=== PATIENT | female | born 1940 | race Native Hawaiian/Other Pacific Islander ===

== ENCOUNTER 2017-09-30 22:42 | Emergency (ER) | payer MEDICARE ==
[~2017-09-30] VITALS: Ht 167.6 cm; Wt 99.8 kg
[~2017-09-30 22:42] MED LIST: ALDACTONE25 MG PO; AMBIEN 5 MG TABL5 M1 PO; AMIODARONE HCL100 MG PO; ANTIVERT25 MG PO; COLESTIPOL HCL1 G1 PO; COMPAZINE10 MG PO; DUONEB 2.5-0.5 M3 ML INH; ELIQUIS5 MG PO; FEMARA2.5 MG PO; FOLIC ACID1 MG PO; GLUCOTROL5 MG PO; LANOXIN 0.120.125 M1 PO; LIPITOR10 MG PO; LISINOPRIL2.5 M1 PO; LOPERAMIDE 2 MG2 M1 PO; MIRALAX17 GM PO; OMEPRAZOLE 20 M20 M1 PO; POTASSIUM20 PO; TRAMADOL 50 MG50 MG PO; VITAMIN D1000 UNI1 PO; ZOLOFT50 MG PO
[2017-09-30] MEDS ORDERED: MILK OF MA2400 MG/10 PO (22:48)
[2017-09-30] MEDS ORDERED: TYLENOL325 MG PO (22:49)
[2017-09-30] MEDS ORDERED: PERCOCET 10-321 EACH PO (22:49)
[2017-09-30] MEDS ORDERED: FISH OIL 1,001000 M2 PO (22:49)
[2017-09-30] MEDS ORDERED: JUVEN PACKET1 EAC1 (22:50)
[2017-09-30] MEDS ORDERED: FLORASTOR250 MG PO (22:50)
[2017-09-30] MEDS ORDERED: VENTOLIN HFA 1818 GM INH (22:50)
[2017-09-30] MEDS ORDERED: CEFUROXIME500 MG (22:50)
[2017-09-30] MEDS ORDERED: LACTULOSE20 GM/30 M PO (22:51)
[2017-09-30] MEDS ORDERED: AMBIEN 5 MG TABL5 M1 (22:51)
[2017-09-30 23:01] LABS: ABSOLUTE EOSINOPHILS 0.4 thou/uL (0.0-0.7); ABSOLUTE LYMPHOCYTES 1.5 thou/uL (0.8-5.3); ABSOLUTE MONOCYTES 0.4 thou/uL (0.0-1.2); ABSOLUTE NEUTROPHILS 2.7 thou/uL (1.6-8.1); BASOPHILS 0.8 %; EOSINOPHILS 7.2 %; HEMATOCRIT 31.2 % (37.0-47.0); HEMOGLOBIN 10.1 gm/dL (12.0-15.0); LYMPHOCYTES 30.5 %; MCH 26.9 pg (26.0-34.0); MCHC 32.3 g/dL (28.0-37.0); MCV 83.3 fL (80.0-100.0); MONOCYTES 7.9 %; MPV 9.1 fl. (7.2-11.1); NUCLEATED RBCS 0 /100WBC; PLATELET COUNT* 80 thou/uL (150-400); POLYS 53.6 %; RBC 3.74 mil/uL (4.20-5.00); RDW-CV 22.2 % (10.5-14.5)
[2017-09-30 23:09] LABS: CALCIUM 8.3 mg/dL (8.5-10.1); CREATININE 1.6 mg/dL (0.6-1.3); INR 1.8; POTASSIUM 5.4 mmol/L (3.5-5.1); PROTIME 17.1 Seconds (9.20-11.50)
[2017-09-30 23:18] LABS: ALBUMIN 2.2 g/dL (3.4-5.0); ANISOCYTOSIS 2+; HYPOCHROMASIA 1+; MICROCYTES 1+; OVALOCYTES 1+; PLATELET ESTIMATE DECREASED; POIKILOCYTOSIS 1+; TARGET CELLS 1+; TOTAL PROTEIN 6.8 g/dL (6.4-8.2)
[2017-10-01 00:41] LABS: URINE BILIRUBIN NEGATIVE (Negative); URINE BLOOD 3+ (Negative); URINE CLARITY CLEAR; URINE COLOR YELLOW; URINE GLUCOSE-RANDOM NEGATIVE (Negative); URINE KETONES NEGATIVE (Negative); URINE LEUKOCYTES-REFLEX NEGATIVE (Negative); URINE NITRITE-REFLEX NEGATIVE (Negative); URINE PROTEIN NEGATIVE (Negative); URINE SPECIFIC GRAVITY 1.025 (1.005-1.030); URINE UROBILINOGEN 0.2 E.U./dl (0.2-1.0)
[2017-10-01 00:48] LABS: BACTERIA-REFLEX None Seen /HPF (None Seen); CASTS None Seen /LPF (None Seen); CRYSTALS None Seen /LPF (None Seen); SQUAMOUS NONE SEEN /LPF (0-3); URINE WBC-REFLEX 0-5 Rare /HPF (0-5)
[2017-10-01 02:48] LABS: CALCIUM 7.9 mg/dL (8.5-10.1); CREATININE 1.4 mg/dL (0.6-1.3); POTASSIUM 4.7 mmol/L (3.5-5.1)
[2017-10-01 03:45] VITALS: BP 133/78
== END 2017-10-01 03:46 | disposition home or self-care (01) ==
LOC: M.ERS 22:42
PROVIDERS: Emergency Medicine
DX: E87.5 Hyperkalemia (principal); K94.01 Colostomy hemorrhage; E11.22 Type 2 diabetes mellitus with diabetic chronic kidney disease; I13.0 Hypertensive heart and chronic kidney disease with heart failure and stage 1 through stage 4 chronic kidney disease, or unspecified chronic kidney disease; N18.3 Chronic kidney disease, stage 3 (moderate); I50.9 Heart failure, unspecified; I48.91 Unspecified atrial fibrillation; I25.10 Atherosclerotic heart disease of native coronary artery without angina pectoris; M19.90 Unspecified osteoarthritis, unspecified site; F32.9 Major depressive disorder, single episode, unspecified; J44.9 Chronic obstructive pulmonary disease, unspecified; G89.29 Other chronic pain; M54.9 Dorsalgia, unspecified; M06.9 Rheumatoid arthritis, unspecified; E78.5 Hyperlipidemia, unspecified; G47.33 Obstructive sleep apnea (adult) (pediatric); E66.9 Obesity, unspecified; Z68.35 Body mass index [BMI] 35.0-35.9, adult

== ENCOUNTER 2017-10-24 12:29 | Inpatient (IN) | payer MEDICARE ==
[~2017-10-24] VITALS: Ht 162.6 cm; Wt 76.2 kg
[~2017-10-24 12:29] MED LIST changes: +AMBIEN 5 MG TABL5 M1; +CEFUROXIME500 MG; +FISH OIL 1,001000 M2 PO; +FLORASTOR250 MG PO; +JUVEN PACKET1 EAC1; +LACTULOSE20 GM/30 M PO; +MILK OF MA2400 MG/10 PO; +PERCOCET 10-321 EACH PO; +TYLENOL325 MG PO; +VENTOLIN HFA 1818 GM INH
[2017-10-24] MEDS ORDERED: PACERONE200 MG PO (12:32)
[2017-10-24 12:33] VITALS: BP 105/60
[2017-10-24] MEDS ORDERED: FEMARA2.5 MG PO (12:34)
[2017-10-24] MEDS ORDERED: BENEPROTEIN1 EACH PO (12:37)
[2017-10-24] MEDS ORDERED: LIDOCAINE PAIN1 EACH TOP (12:38)
[2017-10-24] MEDS ORDERED: LASIX 40 MG TAB40 M2 PO (12:38)
[2017-10-24] MEDS ORDERED: COLESTID1 GM PO (12:39)
[2017-10-24] MEDS ORDERED: ENSURE PLUS237 ML PO (12:40)
[2017-10-24 13:20] LABS: HCO3 16.1 mmol/L (22.0-26.0); PO2 80.2 mmHg (75.0-100.0); pH 7.363 (7.340-7.450)
[2017-10-24 14:25] LABS: ABSOLUTE EOSINOPHILS 0.1 thou/uL (0.0-0.7); ABSOLUTE LYMPHOCYTES 1.3 thou/uL (0.8-5.3); ABSOLUTE MONOCYTES 0.4 thou/uL (0.0-1.2); ABSOLUTE NEUTROPHILS 3.3 thou/uL (1.6-8.1); BASOPHILS 0.6 %; EOSINOPHILS 2.3 %; HEMATOCRIT 37.4 % (37.0-47.0); HEMOGLOBIN 11.5 gm/dL (12.0-15.0); LYMPHOCYTES 24.7 %; MCH 25.5 pg (26.0-34.0); MCHC 30.7 g/dL (28.0-37.0); MCV 83.1 fL (80.0-100.0); MONOCYTES 8.2 %; MPV 9.6 fl. (7.2-11.1); NUCLEATED RBCS 0 /100WBC; PLATELET COUNT* 86 thou/uL (150-400); POLYS 64.2 %; RDW-CV 20.9 % (10.5-14.5); WBC 5.2 thou/uL (4.0-11.0)
[2017-10-24 14:35] LABS: CALCIUM 9.5 mg/dL (8.5-10.1); CREATININE 2.7 mg/dL (0.6-1.3)
[2017-10-24 14:47] LABS: ALBUMIN 2.5 g/dL (3.4-5.0); ANISOCYTOSIS 1+; MACROCYTES 1+; MAGNESIUM 2.1 mg/dL (1.8-2.4); PLATELET ESTIMATE DECREASED; POTASSIUM 5.6 mmol/L (3.5-5.1); TOTAL BILIRUBIN 1.6 mg/dL (<0.1-1.0); TOTAL PROTEIN 8.7 g/dL (6.4-8.2); TROPONIN-I LEVEL 0.44 ng/mL (<0.06)
[2017-10-24 14:49] LABS: POIKILOCYTOSIS 1+
[2017-10-24 15:04] LABS: URINE BILIRUBIN NEGATIVE (Negative); URINE BLOOD 3+ (Negative); URINE COLOR YELLOW; URINE GLUCOSE-RANDOM NEGATIVE (Negative); URINE KETONES NEGATIVE (Negative); URINE NITRITE-REFLEX NEGATIVE (Negative); URINE PROTEIN NEGATIVE (Negative); URINE SPECIFIC GRAVITY 1.025 (1.005-1.030); URINE UROBILINOGEN 0.2 E.U./dl (0.2-1.0)
[2017-10-24 15:05] LABS: URINE CLARITY HAZY; URINE LEUKOCYTES-REFLEX 3+ (Negative)
[2017-10-24 15:08] LABS: BACTERIA-REFLEX 1-9 Few /HPF (None Seen); CASTS None Seen /LPF (None Seen); CRYSTALS None Seen /LPF (None Seen); SQUAMOUS 4-10 Moderate /LPF (0-3); URINE RBC 3-10 Few /HPF (0-2); URINE WBC-REFLEX 6-15 Few /HPF (0-5)
--- NOTE | 2017-10-24 15:26 | NUR ---
UPON ASSESSMENT PT WAS FOUND TO HAVE HAD A MASTECTOMY OF THE LEFT BREAST, PT HAS 20G IV PLACED BY EMS IN [facility]. WILL OBTAIN ACCESS ON RT SIDE AND REMOVE ACCESS ON LEFT & PLACE LIMB ALERT BAND. PT HAS COLOSTOMY BAG PRESENT ON ADMISSION THAT IS LEAKING AT TIME OF ADMISSION, WILL OBTAIN NEW BAG DEVICE AND REPLACE MARK.
[2017-10-24 18:02] VITALS: BP 117/60
[2017-10-24 18:10] VITALS: BP 145/74
[2017-10-24 18:30] VITALS: BP 145/74
[2017-10-24 18:40] LABS: APTT 32.9 Seconds (25.0-31.3); INR 1.5; PROTIME 15.5 Seconds (9.20-11.50)
--- NOTE | 2017-10-24 19:00 | NUR ---
pt to room from ER, appears o x 1-3 forgetful, appears weak, family at bedside, hx a-fib, currently SR. family at beside. Called DR Caputo ID, request consult. Called pharmacy request dosing, for IV abx per dr Lawson's request
[2017-10-24] MEDS ORDERED: PERCOCET 10-321 EAC1 PO (19:17)
[2017-10-24 20:20] VITALS: BP 91/43
[2017-10-25] VITALS (8 sets, daily range): BP systolic 95–136; BP diastolic 51–89
[2017-10-25 04:57] LABS: HEMATOCRIT 34.4 % (37.0-47.0); HEMOGLOBIN 10.7 gm/dL (12.0-15.0); MCH 25.4 pg (26.0-34.0); MCHC 31.1 g/dL (28.0-37.0); MCV 81.9 fL (80.0-100.0); MPV 9.7 fl. (7.2-11.1); RBC 4.2 mil/uL (4.20-5.00); RDW-CV 20.8 % (10.5-14.5); WBC 4.6 thou/uL (4.0-11.0)
--- NOTE | 2017-10-25 05:06 | NUR ---
ASSUMED PT CARE AT 1930. ASSESSMENT COMPLETED CHARTED. PT IS CONFUSED YET PLEASENT, ON BEDREST, INCONTINENT AT TIMES, COLOSTOMY IN PLACE WITH NO LEAKING NOTED. PT HAS CALLED OUT SEVERAL TIMES DURING THE NIGHT AND TRIED TO CRAWL OUT OF BED A SHORT TIME AGO. NO C/O PAIN, NOT ABLE TO MAKE MOST NEEDS KNOWN. WILL CONTINUE TO MONITOR.
[2017-10-25 06:08] LABS: ALBUMIN 2.3 g/dL (3.4-5.0); CALCIUM 8.4 mg/dL (8.5-10.1); CREATININE 2.5 mg/dL (0.6-1.3); MAGNESIUM 1.7 mg/dL (1.8-2.4); TOTAL BILIRUBIN 1.3 mg/dL (<0.1-1.0); TOTAL PROTEIN 7.2 g/dL (6.4-8.2)
[2017-10-25 06:23] LABS: POTASSIUM 4.6 mmol/L (3.5-5.1)
--- NOTE | 2017-10-25 08:00 | NUR ---
PT RESTING IN BED, SLEEP INTERRUPTED , APPEARS O X 2-3 , ASKED IF SHE KNEW WHERE SHE WAS, SHE STATED "[facility]", ADVISED SHE WAS [facility], SHE COULD THEN RECALL THAT SHE WS AT [facility], COULD CORRECTLT STATE YEAR OF 2017, BUT STATED SHE BELIEVED IT WAS AUGUST. DOES NOT APPERT TO BE IN ANY OBVIOS PAIN OR DISCOMFORT, BREATHING EVEN AND UNLABORED, O2 SAST 96% ON RA, NSR ON MONITOR WITH PROLOMGED DE IMTERVAL. . PT DENIES CHEST PAIN, SOB, PAIN OR DISCOMFORT, IS NPO, INCONTIENT OF URINE, PRESENTS WITH GENERALIZED WEAKENESS, COLOSTOPY, STOMA , APPEAR SPINK, COLOSTOMG BAG INTACT
--- NOTE | 2017-10-25 18:33 | NUR ---
PT RTESTING IN BED , HAS BEEN O X 3-4 TODAY, FORGETFUL AT [facility]. SEEN BY CARDIOLOGY AND GI, GOOD APPETITE , HAD ABDOMINAL US, IS CUURRENTLY NPO FOR CT SCAN OF ABDOMEN, PT HAS DENIES CHEST PAINM SOB, HAS C/O CHRONIC BACK PAIN, APPEARS WEAK, FED BY STAFF, TURNE Q 2 HOURS, ABLE TO USE CALL LIGHT, HAS BEEN CONTINENT, USED BEDPAN, ASSIT WITH TURNS. PT COMPLTED ORAL CONTRAST AT 1830
[2017-10-26 00:21] VITALS: BP 127/62
[2017-10-26 05:00] VITALS: BP 130/64
--- NOTE | 2017-10-26 05:18 | NUR ---
ASSUMED PT CARE AT 1930. ASSESSMENT COMPLETED CHARTED. PT WENT TO CT SCAN AT BEGINNING OF SHIFT AND WAS BROUGHT BACK UP SHORTLY AFTER AND WAS ABLE TO EAT. NO C/O PAIN, EMPTYING COLOSTOMY BAG SEVERAL TIMES AT NIGHT DUE TO LIQUID STOOLS. BEDREST AND USES BEDPAN TO URINATE. ABLE TO MAKE SOME NEEDS KNOWN. WILL CONTINUE TO MONITOR.
[2017-10-26 07:27] LABS: HEMOGLOBIN 9.9 gm/dL (12.0-15.0); MCH 25.4 pg (26.0-34.0); MCHC 31.1 g/dL (28.0-37.0); MCV 81.6 fL (80.0-100.0); MPV 8.7 fl. (7.2-11.1); NUCLEATED RBCS 0 /100WBC; PLATELET COUNT* 68 thou/uL (150-400); RBC 3.92 mil/uL (4.20-5.00)
[2017-10-26 07:40] LABS: ALBUMIN 2.2 g/dL (3.4-5.0); CALCIUM 7.7 mg/dL (8.5-10.1); CREATININE 1.8 mg/dL (0.6-1.3); POTASSIUM 3.6 mmol/L (3.5-5.1); TOTAL BILIRUBIN 1.2 mg/dL (<0.1-1.0)
[2017-10-26 07:51] LABS: ABSOLUTE EOSINOPHILS 0.3 thou/uL (0.0-0.7); ABSOLUTE LYMPHOCYTES 0.6 thou/uL (0.8-5.3); ABSOLUTE MONOCYTES 0.1 thou/uL (0.0-1.2); ANISOCYTOSIS 2+; PLATELET ESTIMATE ADEQUATE
--- NOTE | 2017-10-26 08:00 | NUR ---
PT RESTING IN BED , APPEARS ALERT O X 3-4 FOEGETFUL, DENIES CHEST PAIN, SOB, PAIN OR DISCOMFORT, HAS COLOSTOMY LIQUID STOOL. NSR ON MONITOR, HAS HX OF A-FIB, APPEARS DEEHABILITATED/WEAK. NEEDS ASSIT WITH TURNS, ABLE TO FEED SELF WITH SET UP,
[2017-10-26 09:05] VITALS: BP 141/77
--- NOTE | 2017-10-26 10:27 | EKG ---
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: Dimple TENORIO : 1940 Requested By: Thania Rivera Order Number: [id number] MD: Julius De Jesus Measurements Intervals [place] Rate: 75 P: -74 AK: 339 QRS: -46 QRSD: 145 T: 65 QT: 429 QTc: 480 Interpretive Statements Sinus or ectopic atrial rhythm Prolonged AK interval LVH with IVCD, LAD and secondary repol abnrm Compared to ECG 04/17/2016 22:57:21 Left ventricular hypertrophy now present Early repolarization now present Ventricular premature complex(es) no longer present Electronically Signed On 10-26-2017 10:27:32 CDT by Julius De Jesus [email or web address] <ELECTRONICALLY SIGNED> By: Julius De Jesus MD, FACC 10/26/17 1027 1251 1251 Julius De Jesus MD, [facility] /EPI
--- NOTE | 2017-10-26 10:56 | CON ---
[address] [address] CONSULTATION Name: ROSINA PEDERSON Room: [address] IN .R.#: [id number] Admission: 10/24/17 Attend Phys: Jesús Courtney, Discharge: Date of : 42 Report #: [id number] THIS REPORT FOR: //name// CC: Angelica Courtney DATE OF SERVICE: 10/25/2017 ATTENDING PHYSICIAN: Dr. Rivera. REASON FOR CONSULTATION: Possible sepsis. HISTORY OF PRESENT ILLNESS: This is a 77-year-old woman with multiple medical problems, admitted through the Emergency Room with altered mental status. The patient is started on Zosyn and vancomycin. The patient now trying to get out of bed, telling me that she needs to go to the bathroom. The patient had some recollection of past medical history, but she is deemed to be not a good historian. Consequently, most, if not all, her medical information is gathered from the review of records. Apparently, the patient is brought to the ER with weakness, altered mental status of 4-5 days' duration. PAST MEDICAL HISTORY: 1. History of left mastectomy, suspect for breast cancer. 2. Status post colostomy. 3. Hypertension. 4. Diabetes mellitus. 5. Chronic atrial fibrillation. 6. Chronic kidney disease. 7. Obstructive sleep apnea. 8. Previous episode of diverticulitis requiring ileostomy placement. DRUG ALLERGIES: None listed. MEDICATIONS: The patient is currently on treatment with vancomycin 500 mg 2 times daily, Zosyn 3.375 grams IV every 12 hours, Saccharomyces boulardii with breakfast, enoxaparin, atorvastatin, cholecalciferol, folic acid, lidocaine patch, pantoprazole, lactulose, sertraline, fish oil, amiodarone, magnesium supplementation, p.r.n. acetaminophen, albuterol inhalation treatments. SOCIAL HISTORY: See H and P, old records. FAMILY HISTORY: See H and P, [place] [address] CONSULTATION Name: ROSINA PEDERSON Room: [address] IN [facility].#: [id number] Admission: 10/24/17 Attend Phys: Jesús Courtney, Discharge: Date of : 42 Report #: [id number] REVIEW OF SYSTEMS: As above. PHYSICAL EXAMINATION: GENERAL: Elderly obese woman, afebrile since admission. VITAL SIGNS: Temperature 97.9, pulse 61, respirations 17, BP as low as 91/43 to 107/51. Intake and output not available. O2 saturation 95% on room air. HEENMT: Head normocephalic, atraumatic. Pupils reactive, arcus cornealis. Mouth edentulous. NECK: Supple. LUNGS: Clear to auscultation. HEART: S1, S2. No gallops. ABDOMEN: Revealed ostomy in place with stool in the ostomy bag, soft, not tender. PELVIC AND RECTAL: Deferred. EXTREMITIES: No clubbing, cyanosis. BREASTS: Reveals status post left mastectomy. LABORATORY DATA: Sodium 133, potassium 5.6, CO2 of 23, BUN 44, creatinine 2.7. Renal function abnormal since 04/09/2016. Total bilirubin elevated at 1.6 mg/dL, phosphorus 5.4 mg/dL, albumin 2.5 g/dL, total protein 8.7 g/dL. Troponin mildly elevated, lactic acid 2.6. Protime 15.5 seconds, INR 1.5. WBC on admission 5200, hemoglobin 11.5 g/dL and platelets decreased at 86,000. Note is made the patient was thrombocytopenic since 2011. The urinalysis revealed 3+ blood, 3+ leukocyte esterase, some microscopic pyuria, hematuria and bacteriuria. ABGs revealed pH 7.36, pCO2 low at 29, pO2 of 80.2, bicarbonate 16.1, lactic acid not performed during blood gases; this set of blood gases is on room air. MICROBIOLOGY DATA: All pending at the time of this dictation. RADIOLOGY EVALUATION: Chest x-rays reveal cardiomegaly, vascularity within normal limits. No acute cardiopulmonary process. ASSESSMENT: 1. Altered mental status. 2. Possible urinary tract infection. 3. Elevation of serum ammonia, question underlying chronic liver disease. 4. Chronic kidney disease. 5. Anemia, thrombocytopenia. 6. Left mastectomy. 7. History of colonic diverticula, question diverticulitis and question segmental colon resection and ileostomy versus colostomy. SUGGESTIONS: While awaiting culture result continue combination regimen with vancomycin and Zosyn. Monitor laboratory parameters[place] [address] CONSULTATION Name: ROSINA PEDERSON Room: [address] IN [facility].#: [id number] Admission: 10/24/17 Attend Phys: Jesús Courtney, Discharge: Date of : 42 Report #: [id number] Rivera, thank you for requesting my suggestions in the care of your patient. <ELECTRONICALLY SIGNED> By: Kash Caputo MD 10/26/17 1056 0500 1730Guillermherman Caputo MD /nt
--- NOTE | 2017-10-26 11:51 | CON ---
[address] [address] CONSULTATION Name: ROSINA PEDERSON Room: [address] IN .R.#: [id number] Admission: 10/24/17 Attend Phys: Jesús Courtney, Discharge: Date of : 42 Report #: [id number] THIS REPORT FOR: //name// CC: Angelica Courtney DATE OF SERVICE: 10/25/2017 REQUESTING PHYSICIAN: Jesús Courtney MD REASON FOR CONSULTATION: Acute kidney injury. HISTORY OF PRESENT ILLNESS: The patient is a 77-year-old female with medical history significant for deconditioning. She is in detention, trying to get some rehab. She is basically bedridden according to the family. She has chronic kidney disease stage 3, creatinine around 1.6 as a baseline, she was transferred here from detention for altered mental status. Creatinine was 2.7 on admission, potassium was 5.6. She had evidence of infection. The urine looked infected, positive for bacteria, positive for red blood cells and white blood cells. The cultures pending. She was started on IV antibiotics and IV fluids. Her mental status is better now. PAST MEDICAL HISTORY: Significant for: 1. Chronic kidney disease stage 3. 2. History of recurrent urinary tract infections. 3. History of deconditioning. 4. History of breast cancer, status post radiation done by Dr. Live, also has a surgery done by ____. FAMILY HISTORY: Noncontributory. SOCIAL HISTORY: long-term resident. REVIEW OF SYSTEMS: Unreliable. PHYSICAL EXAMINATION: GENERAL: She is awake. VITAL SIGNS: Blood pressure 120/66, it was as low as 91/43, heart rate 64, afebrile. HEENT: Pupils are round. NECK: Supple. LUNGS: Clear. CARDIOVASCULAR: Regular rate. ABDOMEN: Soft. LOWER EXTREMITIES: [place] [id number] CONSULTATION Name: ROSINA PEDERSON Room: [address]#: [id number] Admission: 10/24/17 Attend Phys: Jesús Courtney, Discharge: Date of : 41 Report #: [id number] LABORATORY DATA: Report from today, serum sodium 136, potassium 4.6, chloride 106, carbon dioxide 20, BUN 47 and creatinine 2.5. ASSESSMENT: A 77-year-old female admitted with acute kidney injury, altered mental status, most likely due to urinary tract infection. She was started on IV antibiotics and fluids. Her kidney function is improving. Urine output is improving, potassium is better and mental status is better. I will continue with current treatment and follow her labs. <ELECTRONICALLY SIGNED> By: Willie Roberts MD 10/26/17 1151 1200 1405Alexandr Ayo Roberts MD /BREE
[2017-10-26 16:00] VITALS: BP 146/66
[2017-10-26 17:14] VITALS: BP 140/72
[2017-10-26 20:00] VITALS: BP 141/66
[2017-10-27] VITALS: BP 134/47
[2017-10-27 04:39] VITALS: BP 125/64
[2017-10-27 05:03] LABS: CALCIUM 7.6 mg/dL (8.5-10.1); CREATININE 1.4 mg/dL (0.6-1.3); POTASSIUM 4.3 mmol/L (3.5-5.1)
--- NOTE | 2017-10-27 05:07 | NUR ---
ASSUMED PT CARE AT 1930. ASSESSMENT COMPLETED CHARTED. PT RESTING IN BED AT THIS TIME, SAT UP ON THE EDGE OF THE BED LAST NIGHT STATING SHE WANTED TO GET UP TO USE THE RESTROOM AND INSTEAD WE ASKED IF SHE WOULD USE THE BEDPAN INSTEAD FOR TONIGHT FOR SAFETY AND HAS BEEN URINATING W/O ACCIDENTS. ABLE TO MAKE NEEDS KNOWN. WILL CONTINUE TO MONITOR.
[2017-10-27 08:23] VITALS: BP 141/74
--- NOTE | 2017-10-27 11:10 | CON ---
[address] [address] CONSULTATION Name: ROSINA PEDERSON Room: [address] IN M.R.#: [id number] Admission: 10/24/17 Attend Phys: Jesús Courtney, Discharge: Date of : 42 Report #: [id number] THIS REPORT FOR: //name// CC: Angelica Courtney TYPE OF REPORT: Cardiology consultation. INDICATION: Elevated troponin. HISTORY OF PRESENT ILLNESS: The patient is a very pleasant 77-year-old Somalian woman who was admitted to the hospital with altered mental status and acute renal failure. She is originally from [place]. She has a history of paroxysmal atrial fibrillation. More recently, she has a history of cerebral bleed. She is not anticoagulated for her atrial fibrillation, presumably because of intracerebral bleed. She is alert and somewhat conversive but unable to share adequate history. When asked specifically, she denies any chest pain, tightness or pressure. She does not appear to be short of breath. There is no documented history of coronary artery disease. EKG shows sinus rhythm with nonspecific ST-T wave abnormalities without ST elevation. Troponins are minimally elevated and do not appear to be trending in an upward or downward fashion. ALLERGIES: None documented. HOME MEDICATIONS: Tylenol p.r.n., albuterol 2 puffs as directed, amiodarone 200 mg daily, atorvastatin 10 mg at bedtime, vitamin D 1000 units daily, Colestid 1 gram 2 tablets b.i.d., fish oil 1000 mg daily, folate 1 mg daily, Ensure +1 can 3 times daily, lactulose 30 mL daily, Femara 2.5 mg daily, Lidoderm patch topically daily, lisinopril 2.5 mg daily, milk of magnesia 30 mL daily, omeprazole 20 mg daily, Percocet 10/325 q. 6 hours p.r.n., Florastor 250 mg 2 tablets b.i.d., Zoloft 50 mg daily and Beneprotein 1 capsule b.i.d. REVIEW OF SYSTEMS: Not obtainable. SOCIAL HISTORY: Nonsmoker and nondrinker. FAMILY HISTORY: Noncontributory. PHYSICAL EXAMINATION: VITAL SIGNS: Blood pressure 120/66 and pulse 66 and regular. GENERAL: This is a pleasant elderly female who does not appear to be in distress. HEENT: Head is normocephalic and atraumatic. Extraocular muscles intact. Mucous membranes are moist. NECK: Shows no jugular venous distention. There are no carotid bruits. CHEST: [place] [address] CONSULTATION Name: ROSINA PEDERSON Room: [address] IN M.R.#: [id number] Admission: 10/24/17 Attend Phys: Jesús Courtney, Discharge: Date of : 41 Report #: [id number] CARDIOVASCULAR: Reveals a regular rhythm. I do not appreciate gallop or murmur. ABDOMEN: Reveals normal bowel sounds. The abdomen is soft and nontender. EXTREMITIES: Shows no edema. Peripheral pulses palpable. SKIN: Warm and dry. RADIOLOGICAL DATA: A 12-lead EKG shows sinus rhythm with first degree AV block and nonspecific T-wave flattening and subtle ST-segment depression. LABORATORY DATA: Labs are reviewed and remarkable for BUN 47 and creatinine 2.5, both trending downward. Troponin 0.44, 0.48, 0.45 and 0.52 sequentially. NT-pro-BNP 285. IMPRESSION AND RECOMMENDATIONS: 1. Elevated troponin. Etiology is not clear at this point in time. I would like an echocardiogram to evaluate for possible underlying effusion or wall motion abnormality. She is not having any chest pain to suggest acute coronary syndrome, so we will not treat as such. Consider noninvasive stress testing in the near future. 2. Acute renal failure, improving with hydration. 3. Urinary tract infection. The patient is currently on IV antibiotics. 4. Paroxysmal atrial fibrillation, presently maintaining sinus rhythm on amiodarone. She is not anticoagulated due to history of intracranial bleed. Continue treatment as outlined above. 5. Hypertension. Blood pressure adequately controlled on current regimen. 6. Diabetes per primary physician. 7. Obstructive sleep apnea. 8. History of congestive heart failure, presently stable on low dose diuretic. Plan echocardiogram. <ELECTRONICALLY SIGNED> By: Rai Gregory MD, FACC 10/27/17 1110 1110 [id number] Hospital[facility] Gregory MD, FACC /nt
[2017-10-27 11:52] VITALS: BP 116/83
[2017-10-27 12:20] VITALS: BP 106/65
--- NOTE | 2017-10-27 13:16 | 2DMMODE ---
[place] [address] 2 D/M-MODE ECHOCARDIOGRAM Name: ROSINA PEDERSON Room: [address] IN [facility]#: [id number] Admission: 10/24/17 Attend Phys: Jesús Beltran Discharge: Date of : 42 Date of Service: 10/27/17 1316 Report #: [id number] THIS REPORT FOR: //name// APPROVED REPORT Study performed: 10/27/2017 11:42:38 EXAM: Comprehensive 2D, Doppler, and color-flow Echocardiogram Patient Location: In-Patient Room #: [facility] [place] Status: routine BSA: 1.96 HR: 78 bpm BP: 141/74 mmHg Rhythm: NSR Other Information Study Quality: Good Indications Congestive Heart Failure 2D Dimensions LVEF(%): 33.52 (>50%) IVSd: 17.45 (7-11mm) LVOT Diam: 22.48 (18-24mm) LVDd: 57.08 mm PWd: 13.87 (7-11mm) Ascending Ao: 43.64 (22-36mm) LVDs: 47.85 (25-40mm) Aortic Root: 38.91 mm Barragan's LVEF: 33.52 % Volumes Left Atrial Volume (Systole) LA ESV Index: 62.60 mL/m2 Aortic Valve AoV Peak Linus.: 1.05 m/s AO Peak Gr.: 4.42 mmHg LVOT Max P.23 mmHg AO Mean Gr.: 2.65 mmHg LVOT Mean P.78 mmHg LVOT Max V: 0.56 m/s AO V2 VTI: 18.11 cm LVOT Mean V: 0.43 m/s BECCA (VTI): 2.28 cm2 LVOT V1 VTI: 10.42 cm AI Coryell: 1.51 m/s2 AI PHT: 712.38 [place] [address] 2 D/M-MODE ECHOCARDIOGRAM Name: ROSINA PEDERSON Room: [address] IN [facility]#: [id number] Admission: 10/24/17 Attend Phys: Jesús Beltran Discharge: Date of : 42 Date of Service: 10/27/17 1316 Report #: [id number] Mitral Valve E/A Ratio: 1.48 MV Decel. Time: 155.40 ms MV E Max Linus.: 0.85 m/s MV PHT: 45.06 ms MVA (PHT): 4.88 cm2 TDI E/Lateral E': 5.31 Lateral E' Linus.: 0.16 m/s Pulmonary Valve PV Peak Linus.: 0.75 m/s PV Peak Gr.: 2.22 mmHg Tricuspid Valve RAP Estimate: 5.00 mmHg TR Peak Gr.: 21.52 mmHg RVSP: 26.52 mmHg PA Pressure: 26.52 mmHg Left Ventricle Left ventricle is mildly dilated. There is inferobasilar akinesis with hypokinesis of remaining segments Borderline concentric left ventricular hypertrophy. Left ventricular systolic function is moderate to severely decreased. LVEF is 35%. This study is not technically sufficient to allow evaluation of the LV diastolic function. Right Ventricle The right ventricle is normal size. The right ventricular systolic function is normal. Atria Left atrium is moderately dilated. The right atrium size is normal. Aortic Valve Mild aortic valve sclerosis. Mild aortic regurgitation. There is no aortic valvular stenosis. Mitral Valve The mitral valve is normal in structure. Moderate mitral regurgitation. No evidence of mitral valve stenosis. Tricuspid Valve The tricuspid valve is normal in structure. [place] [address] 2 D/M-MODE ECHOCARDIOGRAM Name: ROSINA PEDERSON Room: [address]#: [id number] Admission: 10/24/17 Attend Phys: Jesús Beltran Discharge: Date of : 42 Date of Service: 10/27/17 1316 Report #: [id number] Pulmonic Valve The pulmonary valve is normal in structure. Mild pulmonic regurgitation. Great Vessels The aortic root is normal in size. IVC is normal in size and collapses with >50% inspiration Pericardium There is no pericardial effusion. <Conclusion> Left ventricle is mildly dilated. Borderline concentric left ventricular hypertrophy. Left ventricular systolic function is moderate to severely decreased. LVEF is 35%. The right ventricle is normal size. Left atrium is moderately dilated. The right atrium size is normal. Mild aortic valve sclerosis. Mild aortic regurgitation. There is no aortic valvular stenosis. The mitral valve is normal in structure. Moderate mitral regurgitation. No evidence of mitral valve stenosis. The tricuspid valve is normal in structure. IVC is normal in size and collapses with >50% inspiration There is no pericardial effusion. There is inferobasilar akinesis with hypokinesis of remaining segments <ELECTRONICALLY SIGNED> By: Julius De Jesus MD, FACC 10/27/171315 15 15 Julius De Jesus MD, FACC /INF
--- NOTE | 2017-10-27 16:51 | NUR ---
SW met with pt to complete initial assessment, introduce self, and SW role. Pt was alert but confused and was not able to answer questions. Pt record indicates pt lives at home with and has a RW and history of HH services. SW to call family to complete assessment and SW to continue to follow to assist with safe dc planning.
--- NOTE | 2017-10-27 17:59 | NUR ---
PT VSS THIS SHIFT. PT TOLERATED GETTING UP TO CHAIR THIS SHIFT. PT PLACED ON 2L PER NC PER DR JUNIOR REQUEST SINCE THIS IS THE PT BASELINE. DR JUNIOR STATED HE WANTS THE O2 ON REGARDLESS OF O2 SATURATION. PT FAMILY IN TO VISIT WITH PATIENT. PT VERBALIZED NO PAIN THIS SHIFT. PT AOX1-2 AT THIS TIME. PT HAS SLIGHT DROOP OF R SIDE OF MOUTH FROM PREVIOUS STROKE AND IS PT BASELINE.
[2017-10-27 20:00] VITALS: BP 116/50; BP 130/53
[2017-10-28] VITALS (14 sets, daily range): BP systolic 119–175; BP diastolic 53–83
--- NOTE | 2017-10-28 04:13 | NUR ---
ASSUMED PT CARE AT 1930. ASSESSMENT COMPLETED CHARTED. ABLE TO MAKE NEEDS KNOWN, PT RESTING IN BED AT THIS TIME, IV SL, BEDREST WITH Q2 TURNS. COLOSTOMY BAG REPLACED THIS SHIFT AND EMPTIED A COUPLE TIMES THIS SHIFT DUE TO LACTALOSE. NPO FOR POSS STENT PLACEMENT TODAY. WILL CONTINUE TO MONITOR.
[2017-10-28 05:23] LABS: ALBUMIN 2.1 g/dL (3.4-5.0); CALCIUM 7.9 mg/dL (8.5-10.1); CREATININE 1.5 mg/dL (0.6-1.3); POTASSIUM 4.4 mmol/L (3.5-5.1); TOTAL PROTEIN 6.5 g/dL (6.4-8.2)
[2017-10-28 09:13] LABS: HEPATITIS B SURFACE AG Negative (Negative)
--- NOTE | 2017-10-28 11:48 | NUR ---
ASSUMED CARE OF PATIENT THIS AM AT 0730. PATIENT IS ALERT ORIENTED X 4 THIS AM. SHE DENIES PAIN AT THIS TIME. PATIENT KEPT NPO FOR PLANNED PROCEDURES. PROCEDURE PREP ORDERS ARE UNCLEAR. CARDIOLOGY NURSE PAGED FOR CLARIFICATION OF ORDERS. NNO AT THIS TIME. CONTACTED THE OFFICE CHAIR ASSEMBLER AND VERBAL ORDERS RECIEVED. PATIENT STARTED ON NS AT 75/HR. PATIENT ASSISTED UP TO THE CHAIR. TELE SHOWS SINUS LAURIE WITH A 1DAVB. WILL CONTINUE TO MONITOR.
--- NOTE | 2017-10-28 16:53 | NUR ---
Stephy with [facility] met with pt and pt family; [facility] will be able to accept pt back at dc and pt/family in agreement with plan. SW to continue to follow to assist with safe dc planning.
[2017-10-29] VITALS (8 sets, daily range): BP systolic 105–134; BP diastolic 47–67
[2017-10-29 05:04] LABS: ABSOLUTE EOSINOPHILS 0.2 thou/uL (0.0-0.7); ABSOLUTE LYMPHOCYTES 0.9 thou/uL (0.8-5.3); ABSOLUTE MONOCYTES 0.4 thou/uL (0.0-1.2); ABSOLUTE NEUTROPHILS 2.5 thou/uL (1.6-8.1); BASOPHILS 0.7 %; EOSINOPHILS 5.3 %; HEMATOCRIT 29.6 % (37.0-47.0); HEMOGLOBIN 9.3 gm/dL (12.0-15.0); LYMPHOCYTES 22.8 %; MCH 25.8 pg (26.0-34.0); MCHC 31.5 g/dL (28.0-37.0); MCV 81.9 fL (80.0-100.0); MONOCYTES 9.5 %; MPV 8.1 fl. (7.2-11.1); NUCLEATED RBCS 0 /100WBC; PLATELET COUNT* 60 thou/uL (150-400); POLYS 61.7 %; RBC 3.61 mil/uL (4.20-5.00); RDW-CV 20.8 % (10.5-14.5)
--- NOTE | 2017-10-29 05:10 | NUR ---
ASSUMED CARE OF PT AFTER REPORT AT 1930. PT A&O3. NOT ORIENTED TO PLACE. REORIENTATION DONE. VSS. PHYSICAL ASSESSMENT COMLPETED AND CHARTED. PT ON O2 AT 2L WITH 100& O2 SAT. PT TRACING SB 1ST DEG BBB ON TELE. PT REPORTED UP 2 ASSIST BUT REMAINS ON BED ALL NIGHT. PT POST CATH SITE TO RIGHT GROIN CLEAN, DRY & INTACT. SOFT SOFT. NO HEMATOMA PRESENT. HOURLY ROUNDING OBSEREVD. CALL LIGHT WITHIN REACH. BED IN LOW POSITION. BED ALARM ON.
[2017-10-29 05:20] LABS: CALCIUM 7.6 mg/dL (8.5-10.1); CREATININE 1.2 mg/dL (0.6-1.3); POTASSIUM 4.5 mmol/L (3.5-5.1)
--- NOTE | 2017-10-29 11:43 | NUR ---
TOOK OVER CARE OF PATIENT AT 0930 THIS MORNING, AGREE WITH PREVIOUS NURSES ASSESSMENT. PATIENT IS ALERT AND ORIENTED PLEASANT. DAUGHTER WAS AT BEDSIDE THIS MORNING. NO COMPLAINTS OF ANY KIND TODAY, CALL LIGHT IS IN REACH, WILL CONTINUE TO MONITOR.
[2017-10-29 12:05] LABS: ANA INTERPRETATION Negative (Negative)
--- NOTE | 2017-10-29 14:37 | NUR ---
CALLED AND FAXED CLINICAL TO [facility] PER REQUEST. ANTICIPATE RETURN TO [facility] IN A DAY OR 2. PT AWARE
--- NOTE | 2017-10-29 17:24 | NUR ---
PATIENT HAS BEEN ALERT MOST OF THE DAY, ORIENTED TIMES 1-2. NO COMPLAINTS OF ANY KIND TODAY. VITAL SIGNS HAVE BEEN STABLE ON ROOM AIR. FAMILY HAS BEEN AT BEDSIDE PART OF THE DAY. BED AND CHAIR ALARM [employer] LIGHT IS IN REACH, WILL CONTINUE TO MONITOR.
[2017-10-30] VITALS: BP 129/64
[2017-10-30 04:00] VITALS: BP 122/49
--- NOTE | 2017-10-30 04:39 | NUR ---
ASSUMED PT CARE AT 1930. NURSING ASSESSMENT COMPLETED AT START OF SHIFT. PT VOICED NO CONCERNS, ACTIVATED SLUDGE ATTENDANT IN PLACE, TRACING SB. HOURLY ROUNDING COMPLETED, HIGH FALL PRECAUTIONS IN PLACE, CALL LIGHT WITHIN REACH.
[2017-10-30 04:50] LABS: CALCIUM 8.2 mg/dL (8.5-10.1); CREATININE 1.5 mg/dL (0.6-1.3); POTASSIUM 4.9 mmol/L (3.5-5.1)
[2017-10-30] MEDS ORDERED: ADULT LOW DOSE81 MG PO (08:57)
[2017-10-30] MEDS ORDERED: SPIRONOLACTONE25 MG PO (08:57)
[2017-10-30] MEDS ORDERED: TOPROL XL50 MG PO ×2 (08:57→09:20)
[2017-10-30] MEDS ORDERED: OXYCODONE HCL 55 MG PO (08:57)
[2017-10-30 10:04] VITALS: BP 129/66
--- NOTE | 2017-10-30 11:00 | NUR ---
ORDERS NOTED FOR DC TO SNF, PT TO RETURN TO [facility]. MET WITH PT AND ANGELR/TD AND SPOKE WITH SPOUSE/YVON OVER THE PHONE. IN AGREEMENT WITH PLAN. CALLED AND FAXED DC ORDERS TO [facility], SHE ARRANGED FOR W/C VAN FOR 1330 OR 1400. CHART COPIED. RN HAS NUMBER TO CALL REPORT.
--- NOTE | 2017-10-30 11:13 | CARD ---
[address] [address] CARDIAC CATH REPORT Name: RSOINA PEDERSON Room: [address] IN ..#: [id number] Admission: 10/24/17 Attend Phys: Jesús Courtney, Discharge: Date of : 41 Report #: [id number] THIS REPORT FOR: //name// APPROVED REPORT Study performed: 10/28/2017 13:37:06 Patient Details Patient Status: Out-Patient Room #: 231 The patient is a 77 year-old female Event Personnel Julius De Jesus Sleep Scientist, Gina Joseph RN Clothing Sales Assistant, [employer] Haley, Jessica RTRussell Monitor Procedures Performed Art Access - R femoral artery* Left Heart Cath w/or w/o Coronaries [facility] Risk Factors Obesity, Hypercholesterolemia, Hypertension Procedure Narrative The patient was brought electively to the Cardiac Catheterization Laboratory and was prepped and draped in a sterile manner. The right femoral was infiltrated with 2% Lidocaine subcutaneous anesthesia. A 6Fr X 35cm Sheath sheath was inserted into the right femoral artery. Coronary angiography was performed using coronary diagnostic catheters. The right coronary system was accessed and visualized with a Diagnostic 6Fr JR4 catheter. The left coronary system was accessed and visualized with a Diagnostic 6Fr JL6 catheter. The left ventricle was accessed and visualized with a Diagnostic 6Fr straight pigtail catheter. Left ventricular/Aortic Valve gradient assessed via catheter pullback. Hemostasis was obtained with manual pressure following sheath removal without any complications. The patient tolerated the procedure well and there were no complications associated with the procedure. Intraoperative Conscious Sedation Sedation start time: 14:15 Case end Time: 14:50 Fentanyl 25 mcg Versed 1 mg Fluoro Time: 10.3 minutes Dose: DAP [id number] cGycm2 1218 [place] [address] CARDIAC CATH REPORT Name: ROSINA PEDERSON Room: [address] IN [facility]#: [id number] Admission: 10/24/17 Attend Phys: Jesús Courtney, Discharge: Date of : 41 Report #: [id number] Contrast Type and Amount: Visipaque 150 ml Diagnostic Cath Left Main 0% narrowing LAD 40% mid vessel narrowing with 60% ostial second diagonal narrowing Circumflex 30% proximal and distal narrowing Right Coronary Dominant vessel with 20% mid and 20% posterolateral branch narrowings Left Ventriculography Left Ventriculography was not performed. Hemodynamics The aortic pressure is 148/68 mmHg with a mean of 91 mmHg. The left ventricular pressure is 145/8 mmHg with a mean of mmHg. The left ventricular end diastolic pressure is 14 mmHg. Conclusion #1 modest coronary artery disease characterized by the following: A 40 percent mid LAD narrowing with 60% ostial second diagonal narrowing B dominant right coronary artery with 20 % mid vessel narrowing and 20% proximal posterolateral branch narrowing C nondominant circumflex coronary artery with 30% proximal and distal narrowing #2 mild systemic systolic hypertension with mild elevation of left ventricular end-diastolic pressure at rest Recommendations Cardiac Risk Reduction Program Diagnostic Cath Approved by: Julius De Jesus MD Date/Time: 10/30/2017 11:12:38 <ELECTRONICALLY SIGNED> By: Julius De Jesus MD, [facility] 10/30/17 1113 1113 [id number] De Jesus MD, FAC /INF
[2017-10-30] MEDS ORDERED: XIFAXAN550 M1 PO (11:33)
[2017-10-30 11:35] VITALS: BP 129/66
[2017-10-30] MEDS ORDERED: AUGMENTIN 875-1 EACH PO (11:40)
--- NOTE | 2017-10-30 11:59 | NUR ---
Nutrition: Pt from [facility], and likely returning there. Admitted for UTI. Wt: 168#. Ate 80% of BKFST this morning. Alb 2.1, prealb 12.2. +BM. CHO controlled diet. No nutrition intervnetions needed today. Consider low nutrition risk. Recommend cranberry juice and >1500mL fluids per day to help prevent UTIs.
[2017-10-30 13:35] VITALS: BP 129/66
--- NOTE | 2017-10-30 13:37 | NUR ---
PATIENT HAS BEEN ALERT AND ORIENTED TIMES 2-3. VITAL SIGNS STABLE ON 2 LITERS OF OXYGEN. NO COMPLAINTS OF PAIN TODAY. PATIENT IS BEING DISCHARGED TO [facility]. LEFT VIA WHEEL CHAIR WITH TRANSPORTER IN WHEEL CHAIR VAN. DISCHARGE INSTRUCTION AND PRESCRIPTIONS SENT WITH TRANSPORTER. FAMILY LEFT WITH PATIENT. FAMILY GATHERED UP BELONGINGS.
--- NOTE | 2017-10-31 07:55 | CON ---
[address] [address] CONSULTATION Name: ROSINA PEDERSON Room: [address] IN M.R.#: [id number] Admission: 10/24/17 Attend Phys: Jesús Courtney, Discharge: 10/30/17 Date of : 41 Report #: [id number] THIS REPORT FOR: //name// CC: Dinah Courtney DATE OF SERVICE: 10/25/2017 REFERRING PHYSICIAN: Dr. Jesús Courtney. REASON FOR CONSULTATION: Mental status changes. IMPRESSION: 1. Mental status changes, which are multifactorial which is apparently related to hepatic encephalopathy. 2. Elevated ammonia level with probable cirrhosis related to ROJAS (CT scan was reviewed and demonstrates a nodular-appearing liver, suspicious for the same -- suspect possible hepatic encephalopathy. 3. Thrombocytopenia with evidence for splenomegaly or obvious portal hypertension. 4. 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 5. Pancreatic head cyst measuring 2 x 1.8 cm without ductal dilation -- suspect IPMN, ____. 6. Chronic kidney disease, stage 4 with mild metabolic acidosis. 7. Question history of breast cancer with previous surgery followed by adjuvant chemotherapy and radiation therapy for the same. 8. Possible coronary artery disease. RECOMMENDATIONS: 1. Begin the patient on Xifaxan 550 mg p.o. b.i.d. and also begin lactulose 30 mL t.i.d. for now and monitor response to same. 2. We will be getting information from the family and primary care provider regarding the patient's medical history as she is a poor historian at this time with her mental status. 3. We will evaluate the patient for possible EGD during this hospital stay and screen for possible esophageal varices. We will have to wait until the cardiovascular evaluation is completed. 4. We will consider transjugular liver biopsy with measurements of hepatic venous pressure gradient, but we need to family regarding the patient's candidacy for the same given the history of chronic kidney disease. She may need to have an outpatient endoscopic ultrasound, FNA of the pancreatic head cyst with her new ____. [place] [address] CONSULTATION Name: ROSINA PEDERSON Room: [address]#: [id number] Admission: 10/24/17 Attend Phys: Jesús Courtney, Discharge: 10/30/17 Date of : 41 Report #: [id number] 5. We were not able to discuss these plans with the patient's family as they are not available for the same and make further recommendations during the hospital course. HISTORY OF PRESENT ILLNESS: The patient is a 77-year-old Czech female who was admitted to hospital with mental status changes and some confusion. The patient is a very poor historian and most of the history is obtained from the patient's medical records. Apparently, she has generalized weakness and has had some mental status changes for 4-5 days. Her called and informed that she was getting worse, so he brought her to the hospital. No history of any problems related to her liver in the past but does ____ other medical issues. The patient's family is not available when I went to see her to evaluate her issues. ALLERGIES: None. HOME MEDICATIONS: Include milk of magnesia, fish oil, Percocet, albuterol, amiodarone, lactulose, whey protein, furosemide, colestipol, folic acid, lisinopril, omeprazole, sertraline, atorvastatin, vitamin D, and Femara. PAST MEDICAL AND SURGICAL HISTORY: Includes hypertension, diabetes, chronic atrial fibrillation, ____, chronic kidney disease stage 3, coronary artery disease, obstructive sleep apnea, obesity, chronic back pain, depression, hyperlipidemia. She has had a subtotal colectomy with permanent ileostomy, history of latent TB. SOCIAL HISTORY: The patient does not smoke. Alcohol history is none known. PHYSICAL EXAMINATION: GENERAL: Revealed a wra-alr-oxozfrfma 77-year-old Czech female who is awake, but not completely alert. She ____. CARDIOPULMONARY: Revealed regular rate and rhythm. LUNGS: Clear. ABDOMEN: Soft, not distended. She does have parastomal hernia. DISCUSSION: At the present time, the patient has had some mental status changes, maybe related to hepatic encephalopathy. We will give her some Xifaxan and follow while she is in the hospital and make further recommendations during the hospital stay. <ELECTRONICALLY SIGNED> By: Leroy Harrell DO 10/31/17 0755 0548 1943Gkoki Harrell DO /nt
== END 2017-10-30 13:38 | DRG 871 ==
LOC: M.ERS 12:29 → M.2W 16:43 → M.TBA-ER 16:43 → M.2W 17:44
PROVIDERS: Internal Medicine; Internal Medicine Cardiovascular Disease; Internal Medicine Gastroenterology; Internal Medicine Nephrology; Personal Emergency Response Attendant; ADMIT Family Medicine
PROC: 4A023N7 Measurement of Cardiac Sampling and Pressure, Left Heart, Percutaneous Approach (ICD-10-PCS; principal; 2017-10-28)
PROC: B211YZZ Fluoroscopy of Multiple Coronary Arteries using Other Contrast (ICD-10-PCS; principal; 2017-10-28)
DX: A41.9 Sepsis, unspecified organism (principal); G92 Toxic encephalopathy; I50.21 Acute systolic (congestive) heart failure; J96.01 Acute respiratory failure with hypoxia; I21.4 Non-ST elevation (NSTEMI) myocardial infarction; N39.0 Urinary tract infection, site not specified; N17.9 Acute kidney failure, unspecified; N18.4 Chronic kidney disease, stage 4 (severe); K86.2 Cyst of pancreas; K76.6 Portal hypertension; F11.20 Opioid dependence, uncomplicated; I13.0 Hypertensive heart and chronic kidney disease with heart failure and stage 1 through stage 4 chronic kidney disease, or unspecified chronic kidney disease; I48.2 Chronic atrial fibrillation; E11.51 Type 2 diabetes mellitus with diabetic peripheral angiopathy without gangrene; E11.22 Type 2 diabetes mellitus with diabetic chronic kidney disease; I25.10 Atherosclerotic heart disease of native coronary artery without angina pectoris; M19.90 Unspecified osteoarthritis, unspecified site; E66.9 Obesity, unspecified; G47.33 Obstructive sleep apnea (adult) (pediatric); G89.29 Other chronic pain; M54.9 Dorsalgia, unspecified; M06.9 Rheumatoid arthritis, unspecified; J44.9 Chronic obstructive pulmonary disease, unspecified; F32.9 Major depressive disorder, single episode, unspecified; E78.5 Hyperlipidemia, unspecified; E87.5 Hyperkalemia; D64.9 Anemia, unspecified; D69.6 Thrombocytopenia, unspecified; I48.0 Paroxysmal atrial fibrillation; K72.90 Hepatic failure, unspecified without coma; K74.60 Unspecified cirrhosis of liver; I25.5 Ischemic cardiomyopathy; I70.0 Atherosclerosis of aorta; K75.81 Nonalcoholic steatohepatitis (NASH); Z68.28 Body mass index [BMI] 28.0-28.9, adult; Z93.2 Ileostomy status; Z90.12 Acquired absence of left breast and nipple; Z85.3 Personal history of malignant neoplasm of breast; Z93.3 Colostomy status; Z79.82 Long term (current) use of aspirin; Z79.899 Other long term (current) drug therapy; Z86.73 Personal history of transient ischemic attack (TIA), and cerebral infarction without residual deficits

== ENCOUNTER 2017-11-12 13:39 | Inpatient (IN) | payer MEDICARE ==
[~2017-11-12] VITALS: Ht 154.9 cm; Wt 80.2 kg
[~2017-11-12 13:39] MED LIST changes: +ADULT LOW DOSE81 MG PO; +AUGMENTIN 875-1 EACH PO; +BENEPROTEIN1 EACH PO; +COLESTID1 GM PO; +ENSURE PLUS237 ML PO; +LASIX 40 MG TAB40 M2 PO; +LIDOCAINE PAIN1 EACH TOP; +OXYCODONE HCL 55 MG PO; +PACERONE200 MG PO; +PERCOCET 10-321 EAC1 PO; +SPIRONOLACTONE25 MG PO; +TOPROL XL50 MG PO; +XIFAXAN550 M1 PO
[2017-11-12 13:40] VITALS: BP 124/50
[2017-11-12] MEDS ORDERED: FISH OIL 1,001000 M2 PO (13:54)
[2017-11-12 14:07] LABS: HEMOGLOBIN 11.4 gm/dL (12.0-15.0); MCH 25.8 pg (26.0-34.0); MCHC 31.6 g/dL (28.0-37.0); MCV 81.5 fL (80.0-100.0); MPV 9.2 fl. (7.2-11.1); NUCLEATED RBCS 1 /100WBC; PLATELET COUNT* 121 thou/uL (150-400); RBC 4.42 mil/uL (4.20-5.00); RDW-CV 21.9 % (10.5-14.5); WBC 6.1 thou/uL (4.0-11.0)
[2017-11-12 14:12] LABS: CALCIUM 9.3 mg/dL (8.5-10.1); CREATININE 2.5 mg/dL (0.6-1.3); POTASSIUM 4.8 mmol/L (3.5-5.1)
[2017-11-12 14:20] LABS: APTT 40.7 Seconds (25.0-31.3); INR 1.6; PROTIME 16.7 Seconds (9.20-11.50)
[2017-11-12] MEDS ORDERED: PRILOSEC 20 MG20 MG PO (14:20)
[2017-11-12] MEDS ORDERED: IRON325 PO (14:20)
[2017-11-12 14:25] LABS: URINE CLARITY HAZY; URINE COLOR YELLOW; URINE GLUCOSE-RANDOM NEGATIVE (Negative); URINE PROTEIN NEGATIVE (Negative)
[2017-11-12 14:26] LABS: URINE BILIRUBIN NEGATIVE (Negative); URINE BLOOD 1+ (Negative); URINE KETONES NEGATIVE (Negative); URINE LEUKOCYTES-REFLEX NEGATIVE (Negative); URINE NITRITE-REFLEX NEGATIVE (Negative); URINE UROBILINOGEN 0.2 E.U./dl (0.2-1.0)
[2017-11-12 14:27] LABS: BACTERIA-REFLEX None Seen /HPF (None Seen); CASTS None Seen /LPF (None Seen); SQUAMOUS 4-10 Moderate /LPF (0-3); URINE RBC 0-2 Rare /HPF (0-2); URINE WBC-REFLEX None Seen /HPF (0-5)
[2017-11-12 14:28] LABS: CRYSTALS None Seen /LPF (None Seen)
[2017-11-12 14:28] LABS: ALBUMIN 2.6 g/dL (3.4-5.0); TOTAL BILIRUBIN 1.1 mg/dL (<0.1-1.0); TOTAL PROTEIN 8.5 g/dL (6.4-8.2); TROPONIN-I LEVEL 0.48 ng/mL (<0.06)
[2017-11-12 15:57] LABS: ABSOLUTE BASOPHILS 0.1 thou/uL (0.0-0.2); ABSOLUTE LYMPHOCYTES 0.6 thou/uL (0.8-5.3); ABSOLUTE MONOCYTES 0.4 thou/uL (0.0-1.2)
[2017-11-12 15:58] LABS: ANISOCYTOSIS 2+; PLATELET ESTIMATE DECREASED
[2017-11-12 15:59] LABS: MICROCYTES Occasional
[2017-11-12 18:48] VITALS: BP 123/41
[2017-11-12 19:51] LABS: TROPONIN-I LEVEL 0.47 ng/mL (<0.06)
[2017-11-12 20:00] VITALS: BP 119/35
[2017-11-13] VITALS (12 sets, daily range): BP systolic 78–114; BP diastolic 21–50
--- NOTE | 2017-11-13 02:11 | NUR ---
ASSUMED CARE OF PATIENT AT 1900. REMAINS BRADYCARDIC IN THE 40'S. CONSULT TO CARDIOLOGY PER ORDERS. DR FORTE CALLED BACK. ORDERS TO TREAT SYMPTOMATIC BRADYCARDIA RECIEVED. ILEOSTOMY DRAINING, ABLE TO USE BEDPAN. DOES NOT COMPLAIN OF PAIN. LIDOCAINE PATCH HELD DUE TO LOW HEART RATE. TURNS WELL WITH ASSIST X1. POC GOALS DISCUSSED, WILL CONTINUE TO MONITOR BLOOD SUGARS CLOSELY, SEE DOCUMENTATION OF CLINICAL RESULTS. WILL CONTINUE TO MONITOR.
[2017-11-13 05:01] LABS: HEMATOCRIT 32.9 % (37.0-47.0); HEMOGLOBIN 10.5 gm/dL (12.0-15.0); MCH 26.2 pg (26.0-34.0); MCHC 31.8 g/dL (28.0-37.0); MCV 82.3 fL (80.0-100.0); MPV 9.2 fl. (7.2-11.1); RBC 3.99 mil/uL (4.20-5.00); RDW-CV 22.4 % (10.5-14.5); WBC 6.9 thou/uL (4.0-11.0)
[2017-11-13 05:30] LABS: ALBUMIN 2.2 g/dL (3.4-5.0); CALCIUM 8.4 mg/dL (8.5-10.1); CREATININE 2.8 mg/dL (0.6-1.3); MAGNESIUM 1.9 mg/dL (1.8-2.4); TOTAL BILIRUBIN 0.9 mg/dL (<0.1-1.0); TOTAL PROTEIN 7.4 g/dL (6.4-8.2)
[2017-11-13 05:36] LABS: POTASSIUM 6.1 mmol/L (3.5-5.1)
--- NOTE | 2017-11-13 08:38 | NUR ---
ASSUMED CARE OF PT THIS AM AORUND 0715- SOLE FILLER IN PLACE ORDERED, TRACING LAURIE/A-FIB IN 40-39 THIS AM- UPON ASSESSMENT PT NOTED TO BE RESTING IN BED- bp NOTED TO BE 78/30 WITH LAURIE HR AND PT REPORTS NAUSEA/DIZZINESS/ AND LIGHT HEAD- NOTIFIED OF ASSESSMENT FINDINGS WITH ORDERS RECIEVED FOR ATROPINE 1MG NOW, TRANSFER TO ICU AND CARDIOLOGY TO SEE STAT- L.CASE ON FLOOR AT TIME AND NOTIFIED OF NEED TO SEE WITH CONSULT NOTED- PT ATTACHED TO EKG WITH 1MG ATROPINE GIVEN AT 0834 PT HR NOTED TO INCREASE INTO 60'S- PT THEN TRANSFERED TO ICU VIA BED X2- PT ARRIVED TO UNIT WITH REPORT GIVEN TO BECKY MILLER- PT BP AT TIME NOTED TO BE 92/47 AT 0835- THERE TO ASSESS AT TIME OF TRANSFER- BELONGINGS TRANSFERED [facility] PT- ALL NEEDS MET AT TIME OF TRANSFER
[2017-11-13 09:34] LABS: CALCIUM 8.6 mg/dL (8.5-10.1)
[2017-11-13 09:41] LABS: POTASSIUM 6.1 mmol/L (3.5-5.1)
--- NOTE | 2017-11-13 11:22 | NUR ---
INTERDISICPLINARY ROUNDS: PT TRANSFERED TO ICU FROM [facility] FOR BRADYCARDIA AND HYPERKALCEMIA. PT KNOWN TO FROM PREVIOUS STAY, WENT TO [facility] ON 10/30 FOR SNF AND WAS ADMITTED FROM THERE. PRIOR TO [facility], PT LIVED AT HOME WT[facility] SPOUSE, USES WALKER AND HAS SUPPORTIVE FAMILY. CALL TO [facility]/YAQUELIN, THEY WILL ACCEPT BACK AT [place]. CALL TO SPOUSE/YVON, MADE AWARE PT HAD TRANSFERRED TO ICU. WILL FOLLOW
--- NOTE | 2017-11-13 11:42 | EKG ---
[place] [address] ELECTROCARDIOGRAM REPORT Name: ROSINA PEDERSON Room: [address] ADM IN M.R.#: [id number] Admission: 11/12/17 Attend Phys: Angle Talavera MD Discharge: Date of : 41 Report #: [id number] THIS REPORT FOR: //name// [facility] ED Test Date: 2017-11-12 Test Time: 14:20:11 Pat Name: ROSINA PEDERSON Department: Room: [facility] Gender: F Inspector Wire Products: Camryn REAGAN : 1940 Requested By: Leo Suero Order Number: [id number] MD: Loc Caballero Measurements Intervals [place] Rate: 60 P: 246 PA: 329 QRS: -53 QRSD: 142 T: 5 QT: 554 QTc: 554 Interpretive Statements Sinus or ectopic atrial rhythm Prolonged PA interval Nonspecific IVCD with LAD LVH with secondary repolarization abnormality Compared to ECG 10/24/2017 12:51:13 No significant changes Electronically Signed On 11-13-2017 11:42:21 CDT by Loc Caballero [email or web address] <ELECTRONICALLY SIGNED> By: Loc Caballero MD, [facility] 11/13/17 1142 1420 1420 Loc Caballero MD, [facility] /EPI
[2017-11-13 16:21] LABS: CALCIUM 8.6 mg/dL (8.5-10.1); CREATININE 2.8 mg/dL (0.6-1.3); MAGNESIUM 1.8 mg/dL (1.8-2.4)
[2017-11-13 16:24] LABS: POTASSIUM 6.1 mmol/L (3.5-5.1)
--- NOTE | 2017-11-13 16:40 | NUR ---
PATIENT HAD VOMITTING EPISODE AT 1630. VOMITTED ALL PEACHES SHE ATE FOR SPEAK THERAPY. ZOFRAN GIVEN AND CLEANED UP PATIENT. VITALS REMAIN STABLE AT THIS TIME. AT BEDSIDE.
--- NOTE | 2017-11-13 18:07 | NUR ---
PATIENT DROPPING HEART RATE INTO 40S THIS EVENING. HAVING EPISODES OF NAUSEA AND VOMITING MULTIPLE TIMES THIS EVENING. CLAMMY, SUGARS STABLE, NO CHEST PAIN, DIZZINESS OR SHORTNESS OF BREATH. EKG DONE, SHOWING AFIB. CALLED DR LLANES AND GAVE INFORMATION TO HIM, ORDERS RECEIVED TO NOT CALL THROUGH THE NIGHT UNLESS SHE IS HAVING SYMPTOMATIC BRADYCARDIA AND GET AN EKG IN THE AM. PATIENT HAS FAMILY AT BEDSIDE AT THIS TIME. NO APPETITE TO EAT DINNER DUE TO NAUSEA AND VOMITTING. CALL LIGHT IN REACH, CHIEF PROCUREMENT OFFICER IN PLACE.
[2017-11-14] VITALS (13 sets, daily range): BP systolic 86–129; BP diastolic 31–79
[2017-11-14 04:25] LABS: HEMOGLOBIN 9.8 gm/dL (12.0-15.0); MCH 26.1 pg (26.0-34.0); MCHC 31.6 g/dL (28.0-37.0); MCV 82.6 fL (80.0-100.0); MPV 9.2 fl. (7.2-11.1); RBC 3.76 mil/uL (4.20-5.00); RDW-CV 22.4 % (10.5-14.5); WBC 6.5 thou/uL (4.0-11.0)
[2017-11-14 04:54] LABS: ALBUMIN 2.1 g/dL (3.4-5.0); CALCIUM 7.9 mg/dL (8.5-10.1); CREATININE 2.5 mg/dL (0.6-1.3); MAGNESIUM 1.6 mg/dL (1.8-2.4); POTASSIUM 5.5 mmol/L (3.5-5.1); TOTAL BILIRUBIN 1.1 mg/dL (<0.1-1.0); TOTAL PROTEIN 6.9 g/dL (6.4-8.2)
--- NOTE | 2017-11-14 06:28 | NUR ---
Pt's colostomy bag overfilled and came loose at 2029. New bag ordered and placed. Much less drainage for remainder of shift. K+ remained 6.1 per lab draw at beginning of shift. Paged Dr. Singh (confectionery cooker for Nephrology), orders received for regular insulin and D50 per IV. This am K+ = 5.5. VSS. Afib per monitor, rate upper 40s to low 50s. 550 mls per lemos this am. No complaints this am. Will continue to monitor.
--- NOTE | 2017-11-14 12:48 | EKG ---
[place] [address] ELECTROCARDIOGRAM REPORT Name: ROSINA PEDERSON Room: [address] ADM IN M.R.#: [id number] Admission: 11/12/17 Attend Phys: Angle Talavera MD Discharge: Date of : 41 Report #: [id number] THIS REPORT FOR: //name// [facility] Test Date: 2017-11-13 Test Time: 17:39:53 Pat Name: ROSINA PEDERSON Department: Room: [address] Gender: F Cheesemaker Helper: [facility] : 1940 Requested By: Angle Talavera Order Number: [id number] Reading MD: Loc Caballero Measurements Intervals [place] Rate: 53 P: [place]: QRS: -30 QRSD: 146 T: 151 QT: 500 QTc: 470 Interpretive Statements sinus jose l LVH with secondary repolarization abnormality Probable lateral infarct, age indeterminate Anterior Q waves, possibly due to LVH Compared to ECG 11/12/2017 14:20:11 Myocardial infarct finding now present Q waves now present Ectopic atrial rhythm no longer present First degree AV block no longer present Intraventricular conduction delay no longer present Electronically Signed On 11-14-2017 12:47:54 CDT by Loc Caballero [email or web address] <ELECTRONICALLY SIGNED> By: Loc Caballero MD, [facility] 11/14/17 1247 1739 1739 Loc Caballero MD, [facility] /EPI
--- NOTE | 2017-11-14 12:49 | EKG ---
[place] [address] ELECTROCARDIOGRAM REPORT Name: ROSINA PEDERSON Room: [address] ADM IN .R.#: [id number] Admission: 11/12/17 Attend Phys: Angle Talavera MD Discharge: Date of : 41 Report #: [id number] THIS REPORT FOR: //name// [facility] Test Date: 2017-11-14 Test Time: 07:34:30 Pat Name: ROSINA PEDERSON Department: Room: [address] Gender: F Firmware Manager: ISABELLE : 1940 Requested By: Aashish Russell Order Number: [id number] Reading MD: Loc Caballero Measurements Intervals [place] Rate: 46 P: 259 CO: 357 QRS: -44 QRSD: 134 T: 209 QT: 538 QTc: 471 Interpretive Statements Sinus or ectopic atrial bradycardia Prolonged CO interval LVH with IVCD, LAD and secondary repol abnrm Baseline wander in lead(s) V1 Compared to ECG 11/12/2017 14:20:11 Bradycardia, nonsinus now present Ectopic atrial rhythm no longer present Electronically Signed On 11-14-2017 12:48:53 CDT by Loc Caballero [email or web address] <ELECTRONICALLY SIGNED> By: Loc Caballero MD, [facility] 11/14/17 1248 0734 0734 Loc Caballero MD, [facility] /EPI
[2017-11-14 16:06] LABS: CALCIUM 8.1 mg/dL (8.5-10.1); CREATININE 2.1 mg/dL (0.6-1.3); MAGNESIUM 1.6 mg/dL (1.8-2.4); POTASSIUM 5.4 mmol/L (3.5-5.1)
--- NOTE | 2017-11-14 17:58 | NUR ---
PT ASSESSMENT CHARTED. VSS THROUGHOUT SHIFT. HR IS CURRENTLY 60 AND HAS BEEN ANYWHERE FROM 45-60 BPM. NO COMPLAINTS OF PAIN. NO COMPLAINTS OF N/V. PT EATING MECHANICALLY GROUND FOOD SHE DOESN'T HAVE HER DENTURES AND APPEARS TO BE TOLERATING WITHOUT DIFFICULTY. Q2H TURNS TO MAINTAIN SKIN INTEGRITY. NO OTHER COMPLAINTS DURING THE SHIFT.
[2017-11-15] VITALS (7 sets, daily range): BP systolic 101–132; BP diastolic 45–64
[2017-11-15 03:23] LABS: ABSOLUTE EOSINOPHILS 0.3 thou/uL (0.0-0.7); ABSOLUTE LYMPHOCYTES 1.1 thou/uL (0.8-5.3); ABSOLUTE MONOCYTES 0.3 thou/uL (0.0-1.2); ABSOLUTE NEUTROPHILS 2.5 thou/uL (1.6-8.1); BASOPHILS 0.8 %; EOSINOPHILS 5.9 %; HEMATOCRIT 28.1 % (37.0-47.0); HEMOGLOBIN 9.1 gm/dL (12.0-15.0); LYMPHOCYTES 26.1 %; MCH 26.5 pg (26.0-34.0); MCHC 32.4 g/dL (28.0-37.0); MCV 81.6 fL (80.0-100.0); MONOCYTES 8.1 %; MPV 8.8 fl. (7.2-11.1); NUCLEATED RBCS 0 /100WBC; PLATELET COUNT* 80 thou/uL (150-400); POLYS 59.1 %; RBC 3.44 mil/uL (4.20-5.00); RDW-CV 23.2 % (10.5-14.5); WBC 4.3 thou/uL (4.0-11.0)
[2017-11-15 03:50] LABS: CALCIUM 7.6 mg/dL (8.5-10.1); CREATININE 1.8 mg/dL (0.6-1.3); MAGNESIUM 1.3 mg/dL (1.8-2.4); POTASSIUM 5.1 mmol/L (3.5-5.1); TOTAL BILIRUBIN 0.8 mg/dL (<0.1-1.0); TOTAL PROTEIN 6.4 g/dL (6.4-8.2)
--- NOTE | 2017-11-15 05:23 | NUR ---
ASSUMED CARE OF PT AT 1900 PT ALERT AND ORIENTED X 3 VS AND ASSESSMENT STABLE. PT AFIB ON THE MONITORWITH A RATE OF 45-60 THROUGHOUT THE NIGHT. PT TURNED Q2H DENIED ANY COMPLAINTS AND SLEPT THROUGH THE NIGHT. WILL CONTINUE PLAN OF CARE.
--- NOTE | 2017-11-15 07:46 | NUR ---
ASSUMED CARE OF PATIENT, PATIENT IS RESTING AT THIS TIME, ASSESSMENT CHARTED. VITALS STABLE. PATIENT IS TELE STATUS.
--- NOTE | 2017-11-15 15:15 | NUR ---
PATIENT UP IN A CHAIR AT THIS TIME. 2 PERSON ASSIST, PARTIAL BATH GIVEN. CALL LIGHT IN REACH, FORENSIC LOCKSMITH IN PLACE.
--- NOTE | 2017-11-15 18:28 | NUR ---
PATIENT PROGRESSING WELL TOWARDS GOALS. ATE ALL MEALS TODAY, SOME NAUSEA WITH BREAKFAST BUT NO VOMITTING THIS SHIFT. NO PAIN. GOT UP TO CHAIR TO EAT LUNCH AND DINNER. TOLERATED WELL. HEART RATE HAS MAINTAINED ABOVE 50'S AND 60'S. SMALL APPLIANCE ASSEMBLY SUPERVISOR IN PLACE. CALL LIGHT IN REACH.
[2017-11-16] VITALS (7 sets, daily range): BP systolic 115–127; BP diastolic 43–69
[2017-11-16 04:41] LABS: HEMOGLOBIN 9.6 gm/dL (12.0-15.0); MCH 26.2 pg (26.0-34.0); MCHC 31.9 g/dL (28.0-37.0); MCV 82.1 fL (80.0-100.0); MPV 8.8 fl. (7.2-11.1); RBC 3.65 mil/uL (4.20-5.00); RDW-CV 23.4 % (10.5-14.5); WBC 4.4 thou/uL (4.0-11.0)
[2017-11-16 04:59] LABS: CALCIUM 7.6 mg/dL (8.5-10.1); CREATININE 1.7 mg/dL (0.6-1.3); MAGNESIUM 1.6 mg/dL (1.8-2.4); POTASSIUM 5.2 mmol/L (3.5-5.1)
--- NOTE | 2017-11-16 06:04 | NUR ---
PROGRESSING TOWARD GOALS. VSS. C/O BACK PAIN X1, PRN OXYCODONE GIVEN ORDERED WITH RELIEF OF SYMPTOMS. PT HAS BEEN TURNED Q2HR THROUGHOUT THE SHIFT.
--- NOTE | 2017-11-16 11:02 | EKG ---
[place] [address] ELECTROCARDIOGRAM REPORT Name: ROSINA PEDERSON Room: [address] ADM IN M.R.#: [id number] Admission: 11/12/17 Attend Phys: Angle Talavera MD Discharge: Date of : 41 Report #: [id number] THIS REPORT FOR: //name// [facility] Test Date: 2017-11-16 Test Time: 08:57:39 Pat Name: ROSINA PEDERSON Department: Room: [address] Gender: F Workforce Development Specialist: UNKNOWN : 1940 Requested By: Angle Talavera Order Number: [id number] Reading MD: Aashish Russell Measurements Intervals [place] Rate: 47 P: 233 [place]: 253 QRS: -32 QRSD: 133 T: 249 QT: 579 QTc: 512 Interpretive Statements Sinus or ectopic atrial bradycardia Prolonged [place] interval LVH with secondary repolarization abnormality Anterior Q waves, possibly due to LVH Baseline wander in lead(s) V2 Compared to ECG 11/14/2017 07:34:30 no change Electronically Signed On 11-16-2017 11:02:19 CDT by Aashish Russell [email or web address] <ELECTRONICALLY SIGNED> By: Aashish Russell MD, [facility] 11/16/17 1102 0857 0857 Aashish Russell MD, [facility] /EPI
--- NOTE | 2017-11-16 11:08 | CON ---
[address] [address] CONSULTATION Name: ROSINA PEDERSON Room: [address] IN .R.#: [id number] Admission: 11/12/17 Attend Phys: Angle Talavera MD Discharge: Date of : 42 Report #: [id number] THIS REPORT FOR: //name// [facility] DATE OF SERVICE: 11/13/2017 REQUESTING PHYSICIAN: Dr. Talavera. REASON FOR CONSULTATION: Acute kidney injury. HISTORY OF PRESENT ILLNESS: The patient is a very pleasant 77-year-old female known to us as I saw her this month, 10/24/2017 for acute kidney injury. She was discharged home on 10/29/2017. Her creatinine at that time came down from 2.7 to 1.6. Today, she presents with creatinine of 3.0. Again, she was hypotensive, bradycardic, heart rate was down to 42, potassium 6. Serum sodium 134. MEDICAL HISTORY: Significant for: 1. Chronic kidney disease stage 3. 2. Failure to thrive with [facility] with resultant volume depletion. 3. History of diabetes mellitus type 2. 4. Cardiomyopathy. She had an echocardiogram done on 10/24/2017, at that time her ejection fraction, left ventricle was 35%. Also has history of breast cancer, history of colon cancer with colectomy, history of liver cirrhosis, history of colon cancer is unconfirmed. She does have colectomy. The details on that colectomy is not clear, not sure why she had done. SOCIAL HISTORY: She is a penitentiary resident. FAMILY HISTORY: Noncontributory. MEDICATIONS: Reviewed from my standpoint, she was on spironolactone and lisinopril. REVIEW OF SYSTEMS: Unable to obtain. PHYSICAL EXAMINATION GENERAL: She is awake. VITAL SIGNS: Her blood pressure is 80/45, heart rate is 42, afebrile. HEENT: Pupils are round. NECK: Supple. LUNGS: [place] [address] CONSULTATION Name: ROSINA PEDERSON Room: [address] IN [facility]#: [id number] Admission: 11/12/17 Attend Phys: Angle Talavera MD Discharge: Date of : 42 Report #: [id number] ABDOMEN: She has a total left mastectomy. She also has colostomy bag in place. EXTREMITIES: Lower extremities without edema. Overall, she looks volume depleted. ASSESSMENT: 1. Acute kidney injury, probably combination of being volume depleted, being on lisinopril, spironolactone and bradycardia with decreased perfusion. 2. Bradycardia with probably due to medication such as amiodarone and Toprol, so this medication was stopped. 3. Hyperkalemia due to spironolactone and acute kidney injury. 4. Diabetes mellitus type 2. 5. Ischemic cardiomyopathy with left ventricle ejection fraction of 35%. 6. Peripheral artery disease. 7. Liver cirrhosis. PLAN: 1. She looks volume depleted to me, so I am going to continue with fluids and we will change fluids to D5 quarter normal with 2 amps of bicarb helping her with hyperkalemia and mild metabolic acidosis. 2. We will recheck her potassium in several hours. 3. Placed Velasquez catheter. 4. Recheck labs in the morning. The patient would not be a good candidate for chronic dialysis. Thank you very much for asking my opinion on acute kidney injury. <ELECTRONICALLY SIGNED> By: Willie Roberts MD 11/16/17 1108 1142 1307Alexnicola Roberts MD /[facility]
--- NOTE | 2017-11-16 17:06 | NUR ---
PT CARE ASSUMED AFTER REPORT. SB/SR/1ST DEGREE ON MONITOR. OTTO TO DD. ILEOSTOMY WITH LIQUID STOOL. PRN TYLENOL GIVEN FOR HEADACHE WITH GOOD REULTS. LIDOCAINE PATCH HELD D/T PT HR. HR TODAY RUNNING 40'S TO 70'S. FALL PRECAUTIONS IN PLACE INCLUDING BED ALARM. PROGRESSING TOWARDS GOALS.
[2017-11-17] VITALS: BP 120/60
[2017-11-17 04:05] LABS: HEMATOCRIT 31.4 % (37.0-47.0); HEMOGLOBIN 9.9 gm/dL (12.0-15.0); MCH 26.2 pg (26.0-34.0); MCHC 31.6 g/dL (28.0-37.0); MCV 82.8 fL (80.0-100.0); MPV 8.9 fl. (7.2-11.1); RBC 3.79 mil/uL (4.20-5.00); WBC 4.5 thou/uL (4.0-11.0)
[2017-11-17 04:28] LABS: CALCIUM 7.9 mg/dL (8.5-10.1); CREATININE 1.6 mg/dL (0.6-1.3); MAGNESIUM 1.4 mg/dL (1.8-2.4); POTASSIUM 5.2 mmol/L (3.5-5.1); TOTAL PROTEIN 6.4 g/dL (6.4-8.2)
[2017-11-17 04:30] VITALS: BP 128/62
--- NOTE | 2017-11-17 07:46 | NUR ---
PT SLEPT MOST OF SHIFT. ASSESSMENT DOCUMENTED. MEDS GIVEN PER E-MAR. IV PATENT. NO REPORTS OF PAIN. OTTO DRAINING. ILLIOSTOMY EMPTIED NEEDED. WILL CONTINUE WITH PLAN OF CARE.
[2017-11-17 08:30] VITALS: BP 142/73
[2017-11-17 11:39] LABS: POTASSIUM 4.3 mmol/L (3.5-5.1)
[2017-11-17 12:00] VITALS: BP 120/68
--- NOTE | 2017-11-17 15:45 | NUR ---
ASH KIER BOILER SPOKE TO YAQUELIN WITH V TO DISCUSS ABILITY TO ACCEPT PATIENT AT. YAQUELIN INFORMS THAT [facility] WILL ACCEPT THE PATIENT AT D/C. FAXED V UPDATED CLINICAL AND PT/OT NOTES. CM WILL REMAIN AVAILABLE TO ASSIST AND FOLLOW NEEDED.
--- NOTE | 2017-11-17 16:15 | NUR ---
PATIENT UP TO CHAIR THIS AM INTO AFTERNOON. ILEOSTOMY EMPITED X 2 THIS SHIFT. OTTO CONTINUES TO DRAIN YELLOW URINE. MG REPLACED IV THIS SHIFT FOR LEVEL OF 1.4 PER ORDERS. PATIENT GIVEN D50 WITH 10 UNITS OF REGULAR INSULIN THIS AM FOR K+ OF 5.2, K+ LEVEL NOW 4.3. PLANT PROTECTION SUPERVISOR IN PLACE. PATIENT TO DISCHARGE TO [facility] WHEN READY.
[2017-11-17 20:15] VITALS: BP 118/65
[2017-11-18 00:01] VITALS: BP 112/77
[2017-11-18 04:13] LABS: HEMATOCRIT 31.8 % (37.0-47.0); HEMOGLOBIN 10.2 gm/dL (12.0-15.0); MCH 26.4 pg (26.0-34.0); MCV 82.3 fL (80.0-100.0); MPV 9.4 fl. (7.2-11.1); RBC 3.86 mil/uL (4.20-5.00); RDW-CV 24.7 % (10.5-14.5); WBC 4.6 thou/uL (4.0-11.0)
[2017-11-18 04:19] LABS: CALCIUM 8.6 mg/dL (8.5-10.1); CREATININE 1.4 mg/dL (0.6-1.3)
[2017-11-18 04:29] VITALS: BP 132/67
--- NOTE | 2017-11-18 05:38 | NUR ---
PT SLEPT MOST OF SHIFT. ASSESSMENT DOCUMENTED. MEDS GIVEN PER E-MAR. IV PATENT. PAIN MEDS GIVEN PER E-MAR FOR HIP PAIN. ILLIOSTOMY CHANGED THIS SHIFT. PATIENT REPOSITIONED THROUGH NIGHT. TELE MONITOR IN PLACE READING SR TO SB, DROPPING TO 45 BPM AT TIMES WITH 1ST DEGREE BLOCK. WILL CONTINUE WITH PLAN OF CARE.
[2017-11-18 08:15] VITALS: BP 127/68
[2017-11-18] MEDS ORDERED: LACTULOSE20 GM/30 M PO (10:23)
[2017-11-18] MEDS ORDERED: ANTACID650 MG PO (10:23)
[2017-11-18] MEDS ORDERED: OXYCODONE HCL 55 MG PO (10:23)
[2017-11-18] MEDS ORDERED: LIDOCAINE PAIN1 EACH TOP (10:23)
--- NOTE | 2017-11-18 11:49 | NUR ---
KID CLUB ATTENDANT SPOKE TO THE PATIENT AND SPOUSE TO DISCUSS DISCHARGE PLANNING NEEDS AND D/C TODAY TO [facility]. PATIENT TO D/C TODAY AT 1430. PATIENT AND SPOUSE IN AGREEMENT. SPOKE TO YAQUELIN AT [facility] TO INFORM OF PATIENT'S D/C, SETUP TRANSFER FOR 1430, AND FAXED PATIENT'S D/C ORDERS. INFORMED RN IN-CHARGE PF PATIENT OF TIME OF TRANSFER, AND WHERE TO CALL REPORT. CM WILL REMAIN AVAILABLE TO ASSIST AND FOLLOW NEEDED.
[2017-11-18 12:39] VITALS: BP 127/68
--- NOTE | 2017-11-18 15:46 | NUR ---
PATIENT DISCHARGED FROM UNIT AT 1530. ALERT AND ORIENTED X 4. VITAL SIGNS STABLE ON ROOM AIR. DISCHARGE PACKET GIVEN TO HOME HEALTH LPN. LEFT WITH TRANSPORTER VIA WHEELCHAIR VAN.
[2017-11-18 16:00] VITALS: BP 127/68
== END 2017-11-18 15:30 | DRG 682 ==
LOC: M.ERS 13:39 → M.2W 14:56 → M.ICU 14:56 → M.TBA-ER 14:56 → M.2W 18:49 → M.ICU 11-13 08:27 → M.3W 11-16 19:35
PROVIDERS: Emergency Medicine Emergency Medical Services; Internal Medicine Nephrology; ADMIT Internal Medicine
DX: N17.9 Acute kidney failure, unspecified (principal); G93.41 Metabolic encephalopathy; E44.1 Mild protein-calorie malnutrition; I13.0 Hypertensive heart and chronic kidney disease with heart failure and stage 1 through stage 4 chronic kidney disease, or unspecified chronic kidney disease; E87.1 Hypo-osmolality and hyponatremia; I50.22 Chronic systolic (congestive) heart failure; E87.2 Acidosis; E11.649 Type 2 diabetes mellitus with hypoglycemia without coma; I48.2 Chronic atrial fibrillation; E11.22 Type 2 diabetes mellitus with diabetic chronic kidney disease; N18.3 Chronic kidney disease, stage 3 (moderate); E11.51 Type 2 diabetes mellitus with diabetic peripheral angiopathy without gangrene; I25.10 Atherosclerotic heart disease of native coronary artery without angina pectoris; E66.9 Obesity, unspecified; G47.33 Obstructive sleep apnea (adult) (pediatric); M54.9 Dorsalgia, unspecified; G89.29 Other chronic pain; M06.9 Rheumatoid arthritis, unspecified; I95.9 Hypotension, unspecified; K74.60 Unspecified cirrhosis of liver; E87.5 Hyperkalemia; T50.0X5A Adverse effect of mineralocorticoids and their antagonists, initial encounter; I25.5 Ischemic cardiomyopathy; J44.9 Chronic obstructive pulmonary disease, unspecified; F32.9 Major depressive disorder, single episode, unspecified; E78.5 Hyperlipidemia, unspecified; Z86.11 Personal history of tuberculosis; Z85.3 Personal history of malignant neoplasm of breast; Z85.038 Personal history of other malignant neoplasm of large intestine; Z90.49 Acquired absence of other specified parts of digestive tract; Y92.89 Other specified places as the place of occurrence of the external cause; Z79.82 Long term (current) use of aspirin; Z79.899 Other long term (current) drug therapy; Z68.33 Body mass index [BMI] 33.0-33.9, adult; Z82.49 Family history of ischemic heart disease and other diseases of the circulatory system; Z87.891 Personal history of nicotine dependence; Z93.2 Ileostomy status; Z86.73 Personal history of transient ischemic attack (TIA), and cerebral infarction without residual deficits; Z87.440 Personal history of urinary (tract) infections; R00.1 Bradycardia, unspecified

== ENCOUNTER 2017-12-07 13:11 | Inpatient (IN) | payer MEDICARE ==
[~2017-12-07] VITALS: Ht 172.7 cm; Wt 75.7 kg
[~2017-12-07 13:11] MED LIST changes: +ANTACID650 MG PO; +IRON325 PO; +PRILOSEC 20 MG20 MG PO
[2017-12-07 13:16] VITALS: BP 132/66
[2017-12-07] MEDS ORDERED: VENTOLIN HFA 1818 GM INH (13:25)
[2017-12-07] MEDS ORDERED: BENEPROTEIN1 EACH PO (13:25)
[2017-12-07] MEDS ORDERED: FEMARA2.5 MG PO (13:25)
[2017-12-07] MEDS ORDERED: ONDANSETRON HCL4 M2 PO (13:26)
[2017-12-07] MEDS ORDERED: GLUCAGEN1 M2 INJECTION (13:27)
[2017-12-07 13:57] LABS: ABSOLUTE EOSINOPHILS 0.2 thou/uL (0.0-0.7); ABSOLUTE LYMPHOCYTES 1.2 thou/uL (0.8-5.3); ABSOLUTE MONOCYTES 0.4 thou/uL (0.0-1.2); ABSOLUTE NEUTROPHILS 2.3 thou/uL (1.6-8.1); EOSINOPHILS 5.8 %; HEMATOCRIT 36.9 % (37.0-47.0); HEMOGLOBIN 11.9 gm/dL (12.0-15.0); LYMPHOCYTES 29.6 %; MCH 27.8 pg (26.0-34.0); MCHC 32.3 g/dL (28.0-37.0); MCV 85.9 fL (80.0-100.0); MONOCYTES 8.7 %; NUCLEATED RBCS 1 /100WBC; PLATELET COUNT* 77 thou/uL (150-400); POLYS 54.9 %; RDW-CV 31.4 % (10.5-14.5); WBC 4.1 thou/uL (4.0-11.0)
[2017-12-07 14:09] LABS: CALCIUM 9.3 mg/dL (8.5-10.1); CREATININE 1.9 mg/dL (0.6-1.3); POTASSIUM 4.9 mmol/L (3.5-5.1)
[2017-12-07 14:11] LABS: APTT 42.6 Seconds (25.0-31.3); INR 1.7; PROTIME 17.1 Seconds (9.20-11.50)
[2017-12-07 14:15] LABS: ANISOCYTOSIS 3+; TARGET CELLS 2+; TEARDROPS 1+
[2017-12-07 14:16] LABS: PLATELET ESTIMATE ADEQUATE
[2017-12-07 14:20] LABS: ALBUMIN 2.3 g/dL (3.4-5.0); TOTAL BILIRUBIN 1.3 mg/dL (<0.1-1.0); TOTAL PROTEIN 7.2 g/dL (6.4-8.2); TROPONIN-I LEVEL 0.54 ng/mL (<0.06)
[2017-12-07 14:47] LABS: URINE BILIRUBIN NEGATIVE (Negative); URINE BLOOD 3+ (Negative); URINE CLARITY CLOUDY; URINE COLOR YELLOW; URINE GLUCOSE-RANDOM NEGATIVE (Negative); URINE KETONES NEGATIVE (Negative); URINE LEUKOCYTES 2+ (Negative); URINE NITRITE NEGATIVE (Negative); URINE PROTEIN NEGATIVE (Negative); URINE SPECIFIC GRAVITY >= 1.030 (1.005-1.030); URINE UROBILINOGEN 0.2 E.U./dl (0.2-1.0)
[2017-12-07 14:59] LABS: BACTERIA >30 Many /HPF (None Seen); HYALINE CASTS 0-3 Few /LPF (None Seen)
[2017-12-07 15:05] LABS: MUCUS None Seen strn/LPF (None Seen); SQUAMOUS 0-3 Few /LPF (0-3)
[2017-12-07 15:07] LABS: CRYSTALS None Seen /LPF (None Seen); URINE RBC 3-10 Few /HPF (0-2); WBC CLUMPS Few (None Seen)
[2017-12-07 16:40] VITALS: BP 130/61
[2017-12-07 16:50] VITALS: BP 146/70
[2017-12-07 20:00] VITALS: BP 124/58
[2017-12-08] VITALS (7 sets, daily range): BP systolic 135–145; BP diastolic 63–92
--- NOTE | 2017-12-08 17:07 | EKG ---
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1940 Requested By: Trudy Ha Order Number: [id number] MD: Julius De Jesus Measurements Intervals [place] Rate: 54 P: -55 IL: 291 QRS: -47 QRSD: 122 T: 179 QT: 530 QTc: 503 Interpretive Statements Sinus rhythm Prolonged [place] interval Nonspecific IVCD with LAD Abnormal T, consider ischemia, lateral leads Compared to ECG 11/16/2017 08:57:39Intraventricular conduction delay now present T-wave abnormality now present Possible ischemia now present Left ventricular hypertrophy no longer present Early repolarization no longer present Q waves no longer present Electronically Signed On 12-08-2017 17:06:58 CDT by Julius De Jesus [email or web address] <ELECTRONICALLY SIGNED> By: Julius De Jesus MD, [facility] 12/08/17 1706 1343 1343 Julius De Jesus MD, [facility] /EPI
--- NOTE | 2017-12-08 17:09 | EKG ---
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1940 Requested By: Trudy Ha Order Number: [id number] MD: Julius De Jesus Measurements Intervals [place] Rate: 54 P: 0 HI: 191 QRS: -47 QRSD: 123 T: 222 QT: 589 QTc: 559 Interpretive Statements Sinus rhythm Atrial premature complex Nonspecific IVCD with LAD Abnormal T, consider ischemia, lateral leads Compared to ECG 11/16/2017 08:57:39 Atrial premature complex(es) now present Intraventricular conduction delay now present T-wave abnormality now present Possible ischemia now present Bradycardia, nonsinus no longer present First degree AV block no longer present Electronically Signed On 12-08-2017 17:09:00 CDT by Julius De Jesus [email or web address] <ELECTRONICALLY SIGNED> By: Julius De Jesus MD, [facility] 12/08/17 1709 04 04 Julius De Jesus MD, [facility] /EPI
[2017-12-09] VITALS: BP 137/87
[2017-12-09 04:00] VITALS: BP 132/68
[2017-12-09 07:59] VITALS: BP 137/65
[2017-12-09 09:48] LABS: NUCLEATED RBCS 1 /100WBC
[2017-12-09 09:50] LABS: ABSOLUTE EOSINOPHILS 0.2 thou/uL (0.0-0.7); ABSOLUTE LYMPHOCYTES 0.7 thou/uL (0.8-5.3); ABSOLUTE MONOCYTES 0.2 thou/uL (0.0-1.2); ABSOLUTE NEUTROPHILS 2.2 thou/uL (1.6-8.1); BASOPHILS 1.5 %; EOSINOPHILS 5.4 %; HEMATOCRIT 39.1 % (37.0-47.0); HEMOGLOBIN 12.4 gm/dL (12.0-15.0); LYMPHOCYTES 21.9 %; MCHC 31.7 g/dL (28.0-37.0); MCV 88.3 fL (80.0-100.0); MONOCYTES 6.2 %; MPV 8.7 fl. (7.2-11.1); PLATELET COUNT* 64 thou/uL (150-400); RBC 4.43 mil/uL (4.20-5.00); RDW-CV 30.9 % (10.5-14.5); WBC 3.4 thou/uL (4.0-11.0)
[2017-12-09 10:04] LABS: ALBUMIN 2.2 g/dL (3.4-5.0); CALCIUM 8.5 mg/dL (8.5-10.1); CREATININE 1.5 mg/dL (0.6-1.3); DIRECT BILIRUBIN 0.6 mg/dL (<0.1-0.3); TOTAL BILIRUBIN 1.4 mg/dL (<0.1-1.0); TOTAL PROTEIN 6.9 g/dL (6.4-8.2)
[2017-12-09 10:22] LABS: ANISOCYTOSIS 3+; TARGET CELLS 2+
[2017-12-09 11:30] VITALS: BP 135/71
[2017-12-09 16:00] VITALS: BP 134/68
[2017-12-09 20:16] VITALS: BP 106/71
[2017-12-10] VITALS: BP 108/69
[2017-12-10 04:00] VITALS: BP 124/59
[2017-12-10 04:50] LABS: ABSOLUTE EOSINOPHILS 0.2 thou/uL (0.0-0.7); ABSOLUTE LYMPHOCYTES 1.1 thou/uL (0.8-5.3); ABSOLUTE MONOCYTES 0.3 thou/uL (0.0-1.2); ABSOLUTE NEUTROPHILS 1.8 thou/uL (1.6-8.1); BASOPHILS 0.5 %; EOSINOPHILS 6.1 %; HEMATOCRIT 37.8 % (37.0-47.0); LYMPHOCYTES 32.6 %; MCH 28.1 pg (26.0-34.0); MCHC 31.7 g/dL (28.0-37.0); MCV 88.6 fL (80.0-100.0); MONOCYTES 7.4 %; MPV 9.5 fl. (7.2-11.1); NUCLEATED RBCS 1 /100WBC; PLATELET COUNT* 60 thou/uL (150-400); POLYS 53.4 %; RBC 4.26 mil/uL (4.20-5.00); WBC 3.4 thou/uL (4.0-11.0)
[2017-12-10 05:17] LABS: ALBUMIN 1.9 g/dL (3.4-5.0); CALCIUM 7.8 mg/dL (8.5-10.1); CREATININE 1.4 mg/dL (0.6-1.3); MAGNESIUM 1.2 mg/dL (1.8-2.4); PHOSPHORUS* 2.9 mg/dL (2.5-4.9); TOTAL BILIRUBIN 0.9 mg/dL (<0.1-1.0); TOTAL PROTEIN 6.3 g/dL (6.4-8.2)
[2017-12-10 05:55] LABS: ANISOCYTOSIS 2+; PLATELET ESTIMATE DECREASED
[2017-12-10 08:00] VITALS: BP 134/59
[2017-12-10 09:00] VITALS: BP 134/59
[2017-12-10 11:48] VITALS: BP 121/66
[2017-12-10] MEDS ORDERED: CEFUROXIME250 MG PO (12:59)
[2017-12-10 13:03] VITALS: BP 121/66
== END 2017-12-10 15:00 | DRG 872 ==
LOC: M.ERS 13:11 → M.TBA-ER 15:15 → M.2W 15:15
PROVIDERS: Family Medicine; Nurse Practitioner Family; ADMIT Internal Medicine
DX: A41.9 Sepsis, unspecified organism (principal); N39.0 Urinary tract infection, site not specified; I50.22 Chronic systolic (congestive) heart failure; E44.0 Moderate protein-calorie malnutrition; N18.4 Chronic kidney disease, stage 4 (severe); I13.0 Hypertensive heart and chronic kidney disease with heart failure and stage 1 through stage 4 chronic kidney disease, or unspecified chronic kidney disease; K72.90 Hepatic failure, unspecified without coma; I48.2 Chronic atrial fibrillation; E11.51 Type 2 diabetes mellitus with diabetic peripheral angiopathy without gangrene; M19.90 Unspecified osteoarthritis, unspecified site; M54.9 Dorsalgia, unspecified; F32.9 Major depressive disorder, single episode, unspecified; E78.5 Hyperlipidemia, unspecified; K74.60 Unspecified cirrhosis of liver; I25.10 Atherosclerotic heart disease of native coronary artery without angina pectoris; E66.9 Obesity, unspecified; G47.33 Obstructive sleep apnea (adult) (pediatric); E11.22 Type 2 diabetes mellitus with diabetic chronic kidney disease; G89.29 Other chronic pain; M06.9 Rheumatoid arthritis, unspecified; J44.9 Chronic obstructive pulmonary disease, unspecified; Z93.3 Colostomy status; Z68.25 Body mass index [BMI] 25.0-25.9, adult; Z86.19 Personal history of other infectious and parasitic diseases; Z82.49 Family history of ischemic heart disease and other diseases of the circulatory system; Z86.73 Personal history of transient ischemic attack (TIA), and cerebral infarction without residual deficits; Z87.891 Personal history of nicotine dependence

== ENCOUNTER 2018-01-11 14:33 | Inpatient (IN) | payer MEDICARE ==
[~2018-01-11] VITALS: Ht 152.4 cm; Wt 75.7 kg
[~2018-01-11 14:33] MED LIST changes: +CEFUROXIME250 MG PO; +GLUCAGEN1 M2 INJECTION; +ONDANSETRON HCL4 M2 PO
[2018-01-11] MEDS ORDERED: PACERONE 200 M200 M1 PO (14:38)
[2018-01-11] MEDS ORDERED: LISINOPRIL2.5 MG PO (14:39)
[2018-01-11] MEDS ORDERED: AMBIEN 5 MG TABL5 M1 PO (14:39)
[2018-01-11] MEDS ORDERED: TYLENOL EXTRA500 MG PO (14:39)
[2018-01-11] MEDS ORDERED: FOLIC ACID1 MG PO (14:39)
[2018-01-11] MEDS ORDERED: LIPITOR10 MG PO (14:39)
[2018-01-11] MEDS ORDERED: COMPAZINE10 MG PO (14:39)
[2018-01-11 15:02] LABS: ABSOLUTE EOSINOPHILS 0.2 thou/uL (0.0-0.7); ABSOLUTE MONOCYTES 0.4 thou/uL (0.0-1.2); ABSOLUTE NEUTROPHILS 2.4 thou/uL (1.6-8.1); BASOPHILS 0.5 %; EOSINOPHILS 5.2 %; HEMATOCRIT 42.9 % (37.0-47.0); HEMOGLOBIN 13.9 gm/dL (12.0-15.0); LYMPHOCYTES 24.4 %; MCHC 32.3 g/dL (28.0-37.0); MCV 89.7 fL (80.0-100.0); MONOCYTES 9.6 %; MPV 9.5 fl. (7.2-11.1); NUCLEATED RBCS 0 /100WBC; PLATELET COUNT* 67 thou/uL (150-400); POLYS 60.3 %; RBC 4.79 mil/uL (4.20-5.00); RDW-CV 24.9 % (10.5-14.5); WBC 4.1 thou/uL (4.0-11.0)
[2018-01-11 15:18] LABS: INR 1.7; PROTIME 17.6 Seconds (9.20-11.50)
[2018-01-11 15:35] LABS: CALCIUM 9.3 mg/dL (8.5-10.1); CREATININE 1.9 mg/dL (0.6-1.3); POTASSIUM 4.8 mmol/L (3.5-5.1)
[2018-01-11 15:36] LABS: ANISOCYTOSIS 2+; TARGET CELLS 2+
[2018-01-11 15:42] LABS: ALBUMIN 2.4 g/dL (3.4-5.0); MAGNESIUM 1.7 mg/dL (1.8-2.4); TOTAL BILIRUBIN 0.9 mg/dL (<0.1-1.0); TOTAL PROTEIN 7.6 g/dL (6.4-8.2)
[2018-01-11 15:43] LABS: TROPONIN-I LEVEL 0.64 ng/mL (<0.06)
[2018-01-11 20:15] VITALS: BP 100/58
[2018-01-11 21:00] VITALS: BP 123/55
[2018-01-12] VITALS: BP 122/51
[2018-01-12 02:23] LABS: ABSOLUTE EOSINOPHILS 0.3 thou/uL (0.0-0.7); ABSOLUTE LYMPHOCYTES 1.4 thou/uL (0.8-5.3); ABSOLUTE MONOCYTES 0.4 thou/uL (0.0-1.2); ABSOLUTE NEUTROPHILS 1.8 thou/uL (1.6-8.1); BASOPHILS 0.8 %; EOSINOPHILS 7.6 %; HEMATOCRIT 41.9 % (37.0-47.0); HEMOGLOBIN 13.5 gm/dL (12.0-15.0); LYMPHOCYTES 34.9 %; MCH 28.9 pg (26.0-34.0); MCHC 32.3 g/dL (28.0-37.0); MCV 89.6 fL (80.0-100.0); MONOCYTES 10.7 %; MPV 9.2 fl. (7.2-11.1); NUCLEATED RBCS 0 /100WBC; PLATELET COUNT* 62 thou/uL (150-400); RBC 4.68 mil/uL (4.20-5.00); WBC 3.9 thou/uL (4.0-11.0)
[2018-01-12 02:32] LABS: ALBUMIN 2.3 g/dL (3.4-5.0); CALCIUM 8.9 mg/dL (8.5-10.1); CREATININE 2.1 mg/dL (0.6-1.3); POTASSIUM 5.4 mmol/L (3.5-5.1); TOTAL PROTEIN 6.9 g/dL (6.4-8.2)
[2018-01-12 02:48] LABS: CHOLESTEROL 76 mg/dL (<200); HDL CHOLESTEROL 39 mg/dL (>40); LDL CHOLESTEROL 30 mg/dL (<100); TC:HDL 1.9 Ratio (Not establshd); TRIGLYCERIDE 37 mg/dL (<150); VLDL 7 mg/dL (<40)
[2018-01-12 02:49] LABS: SERUM ASSESSMENT Clear
[2018-01-12 02:51] LABS: ANISOCYTOSIS 2+; MICROCYTES 1+; OVALOCYTES 1+; PLATELET ESTIMATE DECREASED; POIKILOCYTOSIS 1+; TARGET CELLS 1+; TEARDROPS 1+
[2018-01-12 04:00] VITALS: BP 104/66
--- NOTE | 2018-01-12 05:26 | NUR ---
RECEIVED REPORT FROM ANDREA PENA. PT TRANSFERRED TO 207. PT A&OX4. VSS. ADMISSION HISTORY & PHYSICAL ASSESSMENT COMPLETED AND CHARTED. FALL FORM SIGNED. PT ON O2 AT 2L WITH 97% O2 SAT. PT TRACING SB/1ST DEG/BBB ON TELE. PT UP WITH 1 ASSIST TO BEDSIDE COMMODE. ORIENTED TO ROOM & CALL LIGHT. INSTRUCTED ON NPO POST MIDNIGHT FOR CARDIO CONSULT. DENIES ANY CHEST PAIN OR SOA. CALL LIGHT WITHIN REACH. BED IN LOW POSITION. BED ALARM ON.
[2018-01-12 08:00] VITALS: BP 110/52
--- NOTE | 2018-01-12 09:59 | EKG ---
[place] [address] ELECTROCARDIOGRAM REPORT Name: ROSINA PEDERSON Room: [address] ADM IN .R.#: [id number] Admission: 01/11/18 Attend Phys: Thomas Flores MD Discharge: Date of : 42 Report #: [id number] THIS REPORT FOR: //name// [facility] ED Test Date: 2018-01-11 Test Time: 14:37:12 Pat Name: ROSINA PEDERSON Department: Room: 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: BERENICE : 1940 Requested By: Leo Suero Order Number: [id number] MD: Loc Caballero Measurements Intervals [place] Rate: 57 P: 264 NM: 342 QRS: -55 QRSD: 130 T: 160 QT: 509 QTc: 496 Interpretive Statements Sinus or ectopic atrial rhythm Prolonged NM interval LVH with IVCD, LAD and secondary repol abnrm Borderline prolonged QT interval Baseline wander in lead(s) V4 Compared to ECG 12/07/2017 16:05:26 Electronically Signed On 01-12-2018 9:59:11 SOLE TRIMMER by oLc Caballero [email or web address] <ELECTRONICALLY SIGNED> By: Loc Caballero MD, FACC 01/12/18 0959 1437 1437 Loc Caballero MD, FACC /EPI
--- NOTE | 2018-01-12 10:00 | EKG ---
[place] [address] ELECTROCARDIOGRAM REPORT Name: ROSINA PEDERSON Room: [address] ADM IN M.R.#: [id number] Admission: 01/11/18 Attend Phys: Thomas Flores MD Discharge: Date of : 42 Report #: [id number] THIS REPORT FOR: //name// [facility] Test Date: 2018-01-12 Test Time: 03:32:34 Pat Name: ROSINA PEDERSON Department: Room: [facility] Gender: F Staff Consultant: RPO5 : 1940 Requested By: Thomas Flores Order Number: [id number] Reading MD: Loc Caballero Measurements Intervals [place] Rate: 49 P: 55 CO: 395 QRS: -53 QRSD: 134 T: 174 QT: 556 QTc: 503 Interpretive Statements Sinus bradycardia Prolonged [place] interval LVH with IVCD, LAD and secondary repol abnrm Prolonged QT interval Compared to ECG 12/07/2017 16:05:26 First degree AV block now present Left ventricular hypertrophy now present Early repolarization now present Prolonged QT interval now present Sinus rhythm no longer present Atrial premature complex(es) no longer present T-wave abnormality no longer present Possible ischemia no longer present Electronically Signed On 01-12-2018 10:00:46 MACHINE SETTER AUTOMATIC by Loc Caballero [email or web address] <ELECTRONICALLY SIGNED> By: Loc Caballero MD, FAC 01/12/18 1000 1 1 Loc Caballero MD, FAC /EPI
--- NOTE | 2018-01-12 11:58 | NUR ---
CM spoke with Pt's spouse via phone. Pt recently dc from [facility] skilled to home with [facility]. CM contacted [facility], awaiting call back from Pt's nurse regarding how Pt has been progressing at home. Pt is receiving nursing, PT/OT at home. Spoke with Dr Flores, he requested a family meeting. Plan family meeting with and dtrs tomorrow morning at 10am, updated Dr Flores re: possible hospice admission. CM spoke with Stephy at [facility], they are able to accept Pt back for skilled at dc, if skilled is warranted. Pt has a walker that she uses at home. Following.
[2018-01-12 12:00] VITALS: BP 118/59
--- NOTE | 2018-01-12 13:25 | NUR ---
ASSUMED CARE OF PATIENT THIS AM AT 0730. PATIENT IS ALERT ORIENTED TO PERSON AND PLACE. SHE DENIES PAIN AND DISCOMFORT. TELE SHOWS NSR. PATIENT KEPT NPO THIS AM FOR CARDIOLOGY CONSULT. ORDERS LATER WRITTEN FOR A DIET FOR PATIENT. FSBS MONITORED THROUGHOUT THE DAY. PATIENT IS RESTING AT THIS TIME. CALL LIGHT IS IN REACH.
[2018-01-12 13:52] LABS: URINE BILIRUBIN NEGATIVE (Negative); URINE BLOOD 2+ (Negative); URINE CLARITY CLEAR; URINE COLOR YELLOW; URINE GLUCOSE-RANDOM NEGATIVE (Negative); URINE KETONES NEGATIVE (Negative); URINE LEUKOCYTES-REFLEX 1+ (Negative); URINE NITRITE-REFLEX NEGATIVE (Negative); URINE PROTEIN NEGATIVE (Negative); URINE SPECIFIC GRAVITY >= 1.030 (1.005-1.030); URINE UROBILINOGEN 0.2 E.U./dl (0.2-1.0)
[2018-01-12 14:00] LABS: SQUAMOUS >10 Many /LPF (0-3)
[2018-01-12 14:02] LABS: URINE WBC-REFLEX 6-15 Few /HPF (0-5); WBC CLUMPS Few (None Seen)
[2018-01-12 14:03] LABS: URINE RBC 3-10 Few /HPF (0-2)
[2018-01-12 14:06] LABS: CRYSTALS None Seen /LPF (None Seen); HYALINE CASTS 0-3 Few /LPF (None Seen); MUCUS 0-3 Light strn/LPF (None Seen)
[2018-01-12 14:07] LABS: YEAST-REFLEX Present (None Seen)
[2018-01-12 16:00] VITALS: BP 107/55; BP 111/53
[2018-01-12 20:00] VITALS: BP 119/64
--- NOTE | 2018-01-12 20:00 | NUR ---
RECEIVED REPORT AND ASSUMED CARE OF PT, ASSESSMENT COMPLETED. PT ABLE TO STATE NAME AND BUT NOT ANSWERING OTHER ORIETATION QUESTIONS. FOLLOWS COMMANDS WITH REMINDERS. ASSIST WITH REPOSITIONING IN BED. TAKING PO FLUIDS WELL. TELEMETRY ON SHOWING SB WITH 1ST AVB AND BBB. WILL CONT TO MONITOR AND ASSIST NEEDED.
[2018-01-13] VITALS (7 sets, daily range): BP systolic 98–112; BP diastolic 48–69
[2018-01-13 05:36] LABS: HEMATOCRIT 39.5 % (37.0-47.0); HEMOGLOBIN 12.9 gm/dL (12.0-15.0); MCH 28.9 pg (26.0-34.0); MCHC 32.5 g/dL (28.0-37.0); MCV 88.7 fL (80.0-100.0); MPV 9.6 fl. (7.2-11.1); NUCLEATED RBCS 0 /100WBC; PLATELET COUNT* 53 thou/uL (150-400); RBC 4.46 mil/uL (4.20-5.00); RDW-CV 24.6 % (10.5-14.5); WBC 4.1 thou/uL (4.0-11.0)
[2018-01-13 05:44] LABS: CALCIUM 8.1 mg/dL (8.5-10.1); CREATININE 1.8 mg/dL (0.6-1.3); POTASSIUM 5.4 mmol/L (3.5-5.1)
[2018-01-13 06:43] LABS: ANISOCYTOSIS 1+; PLATELET ESTIMATE DECREASED
--- NOTE | 2018-01-13 06:59 | NUR ---
AWAKE MOST OF NIGHT AND SOMEWHAT RESTLESS. PT YELLING OUT WHEN SHE NEEDS TO URINATE, WILL NOT USE CALL LIGHT. UP TO BSC WITH MAX ASSIST OF 2 PEOPLE, WILL NOT HOLD OWN WEIGHT UP WHEN STANDING OR MOVE FEET. COLOSTOMY PATENT AND EMPTIED FREQ WITH LIQ STOOL. TAKING PO MEDS WITHOUT COUGHING OR CHOKING. TELEMETRY CONT TO SHOW SR/SB WITH 1ST AVB AND BBB. HS GOALS OF REST AND SAFETY ACHIEVED. HOURLY ROUNDING OBSERVED.
[2018-01-13 07:01] LABS: ABSOLUTE LYMPHOCYTES 0.9 thou/uL (0.8-5.3); ABSOLUTE NEUTROPHILS 3.2 thou/uL (1.6-8.1)
--- NOTE | 2018-01-13 09:59 | NUR ---
RECEIVED PT CARE 0700. SHE IS AWAKE/ALERT AND ORIENTED X1. VSS. SHE DENIES SOA. O2 SAT 98% ON 2L NC, TITRATED DOWN TO ROOM AIR. SHE COMPLAINS OF CHEST/UPPER ABDOMINAL PAIN THIS AM. PRN PAIN MEDICATION GIVEN WITH GOOD RELIEF. AM ASSESSMENT CHARTED. MEDS GIVEN PER MAR. REPOSITIONED FOR COMFORT. LIMB ALERT BRACELET PLACED TO PATIENTS LEFT ARM FOR HISTORY OF A LEFT MASTECTOMY. BED ALARM ON. FAMILY AT BEDSIDE. CALL LIGHT WITHIN REACH. WILL CONTINUE TO MONITOR.
--- NOTE | 2018-01-13 15:01 | NUR ---
Spoke with dtr and , they want Pt to return to [facility] skilled. CM updated [facility] liaison, Pt has 23 skilled days left. Faxed referral. [facility] is able to accept Pt on Thursday. Updated Dr and nurse. Following.
--- NOTE | 2018-01-13 19:45 | NUR ---
RECEIVED REPORT AND ASSUMED CARE OF PT, ASSESSMENT COMPLETED. PT SITTING UP IN BED WATCHING TV, SMILING. NO COMPLAINTS VOICED. WILL CONT TO MONITOR AND ASSIST NEEDED.
--- NOTE | 2018-01-14 07:00 | NUR ---
SLEPT WELL TONIGHT. ASSISTED TO BSC WITH 1 PERSON. ASSESSEMNT UNCHANGED. HS GOALS OF REST AND SAFETY ACHIEVED. HOURLY ROUNDING OBSERVED.
[2018-01-14 07:50] VITALS: BP 124/75
[2018-01-14 14:00] VITALS: BP 142/82
--- NOTE | 2018-01-14 17:39 | NUR ---
ASSUMED CARE OF PATIENT AT 1400. PATIENT SETTLED TO ROOM. COLOSTOMY BAG CHANGED. PATIENT DENIES ANY PAIN. PATIENT ASSISTED WITH MEALS. PATIENT DENIES ANY NEEDS AT THIS TIME. CALL LIGHT WITHIN REACH. BED ALARM ON. WILL CONTINUE TO MONITOR.
[2018-01-14 21:00] VITALS: BP 112/53
[2018-01-14 21:40] VITALS: BP 112/53
[2018-01-15 04:40] LABS: HEMATOCRIT 39.9 % (37.0-47.0); HEMOGLOBIN 13.1 gm/dL (12.0-15.0); MCH 29.1 pg (26.0-34.0); MCHC 32.8 g/dL (28.0-37.0); MCV 88.8 fL (80.0-100.0); MPV 9.7 fl. (7.2-11.1); RBC 4.5 mil/uL (4.20-5.00); RDW-CV 24.1 % (10.5-14.5); WBC 3.9 thou/uL (4.0-11.0)
[2018-01-15 05:17] LABS: CREATININE 1.7 mg/dL (0.6-1.3); MAGNESIUM 1.7 mg/dL (1.8-2.4); POTASSIUM 5.2 mmol/L (3.5-5.1); TROPONIN-I LEVEL 0.58 ng/mL (<0.06)
--- NOTE | 2018-01-15 08:27 | NUR ---
PATIENT HAS SLEPT WELL THROUGHOUT THE NIGHT. NO C/O PAIN. PATIENT TURNED EVERY 2HRS AND REPOSITIONED. VSS ON 2L 02 VIA NASAL CANNULA. IV IN RIGHT UPPER ARM-SL. HOURLY ROUNDS MADE. WILL CONTINUE WITH PLAN OF CARE AND NURSING TO MONITOR.
[2018-01-15 09:25] VITALS: BP 136/83
[2018-01-15] MEDS ORDERED: KEFLEX500 M1 PO (11:59)
--- NOTE | 2018-01-15 12:17 | NUR ---
PHARMACY CLINICAL SPECIALIST SPOKE TO [facility] WITH [facility] AND SHE INFORMS THAT THE FACILITY IS ABLE TO ACCEPT THE PATIENT TODAY, AND WILL PROVIDE TRANSPORT AT [phone]. D/C CLINICAL CYTOGENETICIST FAXED THE PATIENT'S D/C ORDERS TO [facility]. D/C CLINICAL CYTOGENETICIST SPOKE TO THE PATIENT AND SPOUSE TO INFORM OF THE PATIENT'S D/C TO [facility], AND BOTH ARE IN AGREEMENT. D/C CLINICAL CYTOGENETICIST INFORMED THE RN IN-CHARGE OF THE PATIENT OF THE PATIENT'S TIME OF TRANSPORT AND WHERE TO CALL REPORT. CM WILL REMAIN AVIALABLE TO ASSIST AND FOLLOW NEEDED.
--- NOTE | 2018-01-16 11:34 | EKG ---
[place] [address] ELECTROCARDIOGRAM REPORT Name: ROSINA PEDERSON Room: [address] DIS IN ..#: [id number] Admission: 01/11/18 Attend Phys: Thomas Flores MD Discharge: 01/15/18 Date of : 42 Report #: [id number] THIS REPORT FOR: //name// [facility] Test Date: 2018-01-14 Test Time: 11:56:34 Pat Name: ROSINA PEDERSON Department: Room: [facility] Gender: F Conventional Underwriter: : 1940 Requested By: Jesús Courtney Order Number: [id number] Reading MD: Loc Caballero Measurements Intervals [place] Rate: 74 P: MD: QRS: -28 QRSD: 129 T: 136 QT: 486 QTc: 540 Interpretive Statements Normal Sinus Rhythm 1st degree avb IVCD, consider atypical RBBB LVH with IVCD and secondary repol abnrm Prolonged QT interval Compared to ECG 01/12/2018 03:32:34 Accelerated junctional rhythm now present Sinus bradycardia no longer present First degree AV block no longer present Electronically Signed On 01-16-2018 11:34:37 CORE LOADER by Loc Caballero [email or web address] <ELECTRONICALLY SIGNED> By: Loc Caabllero MD, FACC 01/16/18 1134 1156 1156 Loc Caballero MD, FACC /EPI
== END 2018-01-15 14:33 | DRG 302 ==
LOC: M.ERS 14:33 → M.TBA-ER 16:24 → M.2W 16:24 → M.3W 01-14 13:58
PROVIDERS: Emergency Medicine Emergency Medical Services; Family Medicine; ADMIT Family Medicine
DX: I25.119 Atherosclerotic heart disease of native coronary artery with unspecified angina pectoris (principal); E43 Unspecified severe protein-calorie malnutrition; N18.4 Chronic kidney disease, stage 4 (severe); I50.22 Chronic systolic (congestive) heart failure; I13.0 Hypertensive heart and chronic kidney disease with heart failure and stage 1 through stage 4 chronic kidney disease, or unspecified chronic kidney disease; N39.0 Urinary tract infection, site not specified; I42.9 Cardiomyopathy, unspecified; I48.2 Chronic atrial fibrillation; E11.51 Type 2 diabetes mellitus with diabetic peripheral angiopathy without gangrene; E11.22 Type 2 diabetes mellitus with diabetic chronic kidney disease; I25.10 Atherosclerotic heart disease of native coronary artery without angina pectoris; M19.90 Unspecified osteoarthritis, unspecified site; E66.9 Obesity, unspecified; G47.33 Obstructive sleep apnea (adult) (pediatric); G89.29 Other chronic pain; M54.9 Dorsalgia, unspecified; M06.9 Rheumatoid arthritis, unspecified; Z66 Do not resuscitate; K72.90 Hepatic failure, unspecified without coma; F03.90 Unspecified dementia, unspecified severity, without behavioral disturbance, psychotic disturbance, mood disturbance, and anxiety; J44.9 Chronic obstructive pulmonary disease, unspecified; F32.9 Major depressive disorder, single episode, unspecified; E78.5 Hyperlipidemia, unspecified; Z93.3 Colostomy status; Z86.19 Personal history of other infectious and parasitic diseases; Z82.49 Family history of ischemic heart disease and other diseases of the circulatory system; Z87.891 Personal history of nicotine dependence; Z68.32 Body mass index [BMI] 32.0-32.9, adult; Z86.73 Personal history of transient ischemic attack (TIA), and cerebral infarction without residual deficits; Z79.82 Long term (current) use of aspirin; Z79.899 Other long term (current) drug therapy